=== PATIENT | female | born 1985 | race Caucasian/White ===

== ENCOUNTER → 2017-05-18 | Outpatient (CLI) | payer BC ==
[2017-05-18 19:45] LABS: HEMATOCRIT 43.5 % (36.0-47.0); HEMOGLOBIN 13.8 g/dl (12.0-16.0); MEAN CORPUSCULAR HGB CONC 31.7 g/dl (32.0-36.5); MEAN CORPUSCULAR VOLUME 82.1 fl (80.0-96.0); PLATELET COUNT, AUTOMATED 219 10^3/uL (150-450); RED CELL DISTRIBUTION WIDTH 13.4 % (11.5-14.5); WHITE BLOOD COUNT 7.3 10^3/uL (4.0-10.0)
[2017-05-18 20:11] LABS: TOTAL 25(OH) VITAMIN D 18.2 NG/ML (30.0-100.0)
[2017-05-18 20:12] LABS: THYROID PEROXIDASE ANTIBODY 189.5 U/ML (<60.0)
[2017-05-18 20:17] LABS: ALBUMIN 4.2 GM/DL (3.2-5.2); ALBUMIN/GLOBULIN RATIO 1.24 (1.00-1.93); ALKALINE PHOSPHATASE 60 U/L (45-117); ALT/SGPT 29 U/L (12-78); ANION GAP 8 MEQ/L (8-16); AST/SGOT 22 U/L (7-37); BILIRUBIN,TOTAL 0.3 MG/DL (0.2-1.0); BLOOD UREA NITROGEN 11 MG/DL (7-18); CALCIUM LEVEL 8.7 MG/DL (8.5-10.1); CARBON DIOXIDE LEVEL 26 MEQ/L (21-32); CHLORIDE LEVEL 107 MEQ/L (98-107); CREATININE FOR GFR 0.59 MG/DL (0.55-1.30); FREE T4 0.96 NG/DL (0.76-1.46); GLOMERULAR FILTRATION RATE > 60.0 (>60); GLUCOSE, FASTING 81 MG/DL (70-100); POTASSIUM SERUM 4.3 MEQ/L (3.5-5.1); SODIUM LEVEL 141 MEQ/L (136-145); TOTAL PROTEIN 7.6 GM/DL (6.4-8.2)
== END ==
LOC: M WUC 17:38
DX: R94.6 Abnormal results of thyroid function studies (principal); K59.00 Constipation, unspecified; Z13.0 Encounter for screening for diseases of the blood and blood-forming organs and certain disorders involving the immune mechanism
CPT/HCPCS: 84443

== ENCOUNTER 2017-06-12 13:15 | Emergency (ER) | payer MEDICAID, BC, OTHER | END 2017-06-12 14:53 | disposition home or self-care (01) | LOC: M ED 13:15 | DX: R04.0 Epistaxis (principal); Z88.2 Allergy status to sulfonamides | CPT/HCPCS: 99282 ==

== ENCOUNTER → 2017-10-06 | Outpatient (CLI) | payer OTHER ==
[2017-10-06 15:39] LABS: FREE T4 0.98 NG/DL (0.76-1.46)
[2017-10-06 16:32] LABS: TOTAL 25(OH) VITAMIN D 28.7 NG/ML (30.0-100.0)
[2017-10-07 09:22] LABS: THYROID PEROXIDASE ANTIBODY 200.2 U/ML (<60.0)
== END ==
LOC: M WUC 13:35
DX: R94.6 Abnormal results of thyroid function studies (principal); E55.9 Vitamin D deficiency, unspecified
CPT/HCPCS: 84443

== ENCOUNTER → 2018-11-05 | Outpatient (REF) | payer OTHER ==
[~2018-11-05] MED LIST: IBUP80TA PO; MAPA500T2 PO; STUACAP PO
== END ==
LOC: M SFHCPLAZ 15:39
PROVIDERS: ATTEND Family Medicine
DX: D22.70 Melanocytic nevi of unspecified lower limb, including hip (principal)

== ENCOUNTER 2019-04-21 13:09 | Inpatient (IN) | payer OTHER, SELFPAY ==
[~2019-04-21] VITALS: Ht 170.2 cm; Wt 72.1 kg
[2019-04-21] MEDS ORDERED: MIRE1IUD IU (13:16)
[2019-04-21] MEDS ORDERED: KETOROLAC 30 MG/ML VIAL (J1885) IV ONE (13:30)
[2019-04-21] MEDS ORDERED: ONDANSETRON 4MG/2ML VIAL (J2405) IV ONE (13:30)
[2019-04-21] MEDS ORDERED: NS 1,000 ML IV ONE ×2 (13:30→18:00)
[2019-04-21 13:45] LABS: BASO # 0.1 10^3/uL (0.0-0.2); BASO % 0.3 % (0.0-1.0); EOS # 0.1 10^3/uL (0.0-0.5); EOS % 0.3 % (0.0-3.0); HEMATOCRIT 44.4 % (36.0-47.0); HEMOGLOBIN 14.3 g/dl (12.0-15.5); LYMPH # 2.3 10^3/uL (1.5-5.0); LYMPH % 15.6 % (24.0-44.0); MEAN CORPUSCULAR HGB CONC 32.2 g/dl (32.0-36.5); MEAN CORPUSCULAR VOLUME 83.9 fl (80.0-96.0); MONO # 0.6 10^3/uL (0.0-0.8); MONO % 4.4 % (0.0-5.0); NEUTROPHILS # 11.5 10^3/uL (1.5-8.5); PLATELET COUNT, AUTOMATED 229 10^3/uL (150-450); RED BLOOD COUNT 5.29 10^6/uL (4.00-5.40); WHITE BLOOD COUNT 14.6 10^3/uL (4.0-10.0)
[2019-04-21 14:14] LABS: ALBUMIN 4.5 GM/DL (3.2-5.2); ALT/SGPT 18 U/L (12-78); BILIRUBIN,DIRECT < 0.1 MG/DL (0.0-0.2); BILIRUBIN,TOTAL 0.3 MG/DL (0.2-1.0); LIPASE 195 U/L (73-393); TOTAL PROTEIN 7.8 GM/DL (6.4-8.2)
[2019-04-21] MEDS ORDERED: PROMETHAZINE INJ 25 MG/ML VIAL (J2550) IM ONE (15:00)
[2019-04-21] MEDS ORDERED: cefTRIAXone SOD 1 GM in D5W MINI-BAG PLUS 50 ML IV ONE (15:00)
--- NOTE | 2019-04-21 15:08 | REP ---
CT of the abdomen and pelvis without IV or bowel contrast for left flank pain: There are no comparisons. The visualized lung denise are unremarkable. The unenhanced hepatic parenchyma, gallbladder, pancreas, spleen and adrenals are unremarkable. There are no renal, ureteral or bladder calculi. There is no hydronephrosis. There is no perinephric stranding. The abdominal aorta is unremarkable. There are periaortic nodes, normal size and borderline enlarged. There is no bowel distension or obstruction. There is no ascites. Pelvis: The appendix is unremarkable. There is an IUD in the uterus. The adnexa are unremarkable. There is no adenopathy or ascites. The bladder is unremarkable. The pelvic bowel loops are unremarkable. Impression: There are no renal, ureteral or bladder calculi. There is no hydronephrosis or perinephric stranding. There is an IUD in the uterus. There is no bowel distension or obstruction. There is no ascites. There are normal size and borderline enlarged periaortic nodes. The lumbar spine, sacrum, sacroiliac joints and hip joints are unremarkable. Electronically Signed by Sabino Lovett MD 04/21/2019 02:17 P
[2019-04-21] MEDS: GASTROGRAFIN SOLUTION 30ML PO SCH ×2 (16:01→16:30)
[2019-04-21] MEDS ORDERED: MORPHINE 4 MG/ML 1ML VIAL/SYRINGE (J2270) IV ONE (16:15)
[2019-04-21] MEDS ORDERED: ISOVUE-370 76% 100ML VIAL (Q9967) As Ordered ONE (16:37)
--- NOTE | 2019-04-21 17:11 | REP ---
CT of the abdomen and pelvis with IV and oral contrast: The study is correlated with the CT of the abdomen pelvis without IV contrast earlier today. Note from the technologist states the patient was unable to tolerate the oral contrast. There is a huge left retroperitoneal mass. On the sagittal images portion of this mass can be seen arising from the lower pole of the left kidney. This portion of the mass contains an oppose as well as soft tissue components, compatible with renal angiomyolipoma. The remainder of the huge mass is a fairly uniform density and may represent extension of the renal mass or could represent a huge retroperitoneal hematoma that is likely developed for a long period of time, or combination. There is no bowel distension or obstruction. The small bowel is displaced anterolaterally to the right by the usual left retroperitoneal mass. There is no colonic obstruction or distension. There is no ascites. There is no periaortic, mesenteric or retroperitoneal adenopathy. Pelvis: There is a trace of ascites in the dependent pelvis. The uterus and adnexa are unremarkable except for uterine IUD in the midline. The pelvic bowel loops are unremarkable. Impression: There is a huge left retroperitoneal mass as described. A portion of this mass arises from the lower pole of the left kidney anteriorly and contains adipose, compatible with renal angiomyolipoma. The remainder of this huge mass may be an extension of the renal tumor or could be a large retroperitoneal hematoma that may have developed over a long period of time or could be a combination. Electronically Signed by Sabino Lovett MD 04/21/2019 05:01 P
[2019-04-21] MEDS ORDERED: ONDA4TAB6 PO (17:38)
[2019-04-21] MEDS ORDERED: PERC5TAB12 PO (17:38)
[2019-04-21] MEDS ORDERED: MACR100C43 PO (17:38)
[2019-04-21 18:42] LABS: BASO % 0.2 % (0.0-1.0); HEMATOCRIT 36.4 % (36.0-47.0); HEMOGLOBIN 11.6 g/dl (12.0-15.5); LYMPH # 1.1 10^3/uL (1.5-5.0); LYMPH % 6.3 % (24.0-44.0); MEAN CORPUSCULAR HEMOGLOBIN 26.4 pg (27.0-33.0); MEAN CORPUSCULAR HGB CONC 31.9 g/dl (32.0-36.5); MEAN CORPUSCULAR VOLUME 82.7 fl (80.0-96.0); MONO # 0.5 10^3/uL (0.0-0.8); NEUTROPHILS # 14.9 10^3/uL (1.5-8.5); NEUTROPHILS % 90.1 % (36.0-66.0); PLATELET COUNT, AUTOMATED 234 10^3/uL (150-450); WHITE BLOOD COUNT 16.6 10^3/uL (4.0-10.0)
[2019-04-21] MEDS ORDERED: MOM 30ML SUSPENSION UDC PO PRN (19:30)
[2019-04-21] MEDS ORDERED: MAALOX 30 ML SUSP *UDC PO PRN (19:30)
--- NOTE | 2019-04-21 19:31 | HPEPDOC ---
[facility] Medical History & Physical Date of Admission Apr 21, 2019 Date of Service: Apr 21, 2019 Primary Care Physician: QUINTON RODRIGUES DO Attending Physician: SARITHA LUA MD History and Physical TIME OF SERVICE: 7:54 PM CHIEF COMPLAINT: Pain HISTORY OF PRESENT ILLNESS: This is a 33 old female who presents with complaints of sudden onset, severe left-sided flank pain that later on moved to her abdomen that began around 10 this morning. She's never had this kind of pain before. Since that his symptoms include nausea, vomiting, and chills. She denies having fevers. Currently, she doesn't have any pain unless she moves around. Per discussion with the ER provider a CT of the abdomen showed an angiolipoma with hematoma at the left kidney & her hemoglobin dropped from 14.3-11.6. Dr. Narvaez urologist has been consulted. REVIEW OF SYSTEMS: 12 point review of systems negative except as listed in HPI PAST MEDICAL/ SURGICAL HISTORY: Hypothyroidism controlled with "autoimmune diet." She denies a history of celiac disease or diabetes SOCIAL HISTORY: She doesn't smoke FAMILY HISTORY: Hyperparathyroidism ALLERGIES: Please see below. HOME MEDICATIONS: Please see below. PHYSICAL EXAMINATION: Vital Signs Date Time Temp Pulse Resp B/P (MAP) Pulse Ox O2 Delivery O2 Flow Rate FiO2 04/21/19 13:10 97.2 80 22 108/76 (87) 100 Room Air GEN: well-nourished / well developed/ NAD INTEGUMENT: not flushed/ not jaundice / no rashes / she has a tattoo on the dorsal surface of one of her feet HEENT: NCAT / lips acyanotic /mucus membranes moist and pink CVS: RRR/NMRG/ no JVP / radial and dorsalis pedis pulses intact / no lower extremity edema LUNGS: able to speak full sentences without stopping to take a breath / no coughing / lungs are clear to auscultation bilaterally on room air ABDOMEN: Contour (flat) / there are no masses or lesions / bowel sounds are hypoactive/ the abdomen is soft & tender with percusion and palpation of the left side MSK/EXTREMITIES: range of motion intact in all 4 extremities NEURO: CN 2-12 are grossly intact / speech is not dysarthric PSYCH: alert and oriented to person place and time/ able to understand and follow all commands Laboratory Tests 04/21/19 13:31 04/21/19 18:18 IMAGING: CT abdomen and pelvis without contrast "...large left retroperitoneal mass rela donnie to the left kidney containing solid and adipose components, possibky a renal angiomyolipoma. There are no comparison studies. In addition, it was discovered that the pelvis is included with the scan and a different file series. On review of the pelvis, there is a IUD in the midline of the uterus. The pelvic bowel loops are unremarkable. There is no adenopathy or ascites. The pelvic bowel loop s are unremarkable. IMPRESSION: Large left retroperitoneal mass as described. Recommend followup CT study with IV contrast for better elucidation of this mass. IUD in the uterus." CT abdomen and pelvis with contrast "...There is a huge left retroperitoneal mass. On the sagittal images portion of this mass can be seen arising from the lower pole of the left kidney. This portion of the mass contains an oppose as well as soft tissue components, compatible with renal angiomyolipoma. The remainder of the huge mass is a fairly uniform density and may represent extension of the renal mass or could represent a huge retroperitoneal hematoma that is likely developed for a long period of time, or combination. There is no bowel distension or obstruction. The small bowel is displaced anterolaterally to the right by the usual left retroperitoneal mass. There is no colonic obstruction or distension. There is no ascites. There is no periaortic, mesenteric or retroperitoneal adenopathy. Pelvis: There is a trace of ascites in the dependent pelvis. The uterus and adnexa are unremarkable except for uterine IUD in the midline. The pelvic bowel loops are unremarkable. Impression: There is a huge left retroperitoneal mass as described. A portion of this mass arises from the lower pole of the left kidney anteriorly and contains adipose, compatible with renal angiomyolipoma. The remainder of this huge mass may be an extension of the renal tumor or could be a large retroperitoneal hematoma that may have developed over a long period of time or could be a combination." ASSESSMENT: Mr. Moody is a 33-year-old female with a past medical history of hypothyroidism, was admitted for management of acute anemia and left renal angiolipoma with hematoma. PLAN: 1. Acute anemia. Likely due to hematoma. Plan: Admit to PCU/monitor vitals/follow-up serial hemoglobin and iron panel/type and screen 2. Renal angiolipoma. Plan: Nothing by mouth with IV fluids/Follow-up with Dr. Narvaez / Hermelindo for nausea and vomiting and morphine for pain DVT PROPHYLAXIS: SCDs DISPOSITION: Home after more than 2 midnight's stay Home Medications Scheduled Levonorgestrel (Mirena) 1 Each Iud, 20 MCG IU ASDIRECTED Nitrofurantoin Monohyd/M-Cryst (Macrobid 100 mg Capsule) 100 Mg Capsule, 100 MG PO BID Scheduled PRN Ondansetron (Ondansetron Odt) 4 Mg Tab.rapdis, 4 MG PO Q6-8HP PRN for nausea/vomiting Oxycodone HCl/Acetaminophen (Percocet 5-325 mg Tablet) 1 Each Tablet, 1 TAB PO Q6H PRN for PAIN Allergies Coded Allergies: Sulfa (Sulfonamide Antibiotics) (Verified Allergy, Unknown, 04/21/19) A-FIB/CHADSVASC A-FIB History Current/History of A-Fib/PAF?: No Current PO Anticoag Therapy: No SARITHA LUA MD Apr 21, 2019 19:31
[2019-04-21 19:54] LABS: FERRITIN 46 NG/ML (8-252); IRON (FE) 103 UG/DL (50-170); PERCENT SATURATION 31.4 % (13.2-45.0); TOTAL IRON BINDING CAPACITY 328 UG/DL (250-450)
[2019-04-21] MEDS ORDERED: ONDANSETRON 4MG/2ML VIAL (J2405) IV PRN (20:15)
[2019-04-21] MEDS: ONDANSETRON 4MG/2ML VIAL (J2405) IV PRN (20:16)
[2019-04-21] MEDS: LR 1,000 ML IV SCH (21:47)
[2019-04-21] MEDS: DOCUSATE SODIUM 100 MG CAP PO SCH (21:50)
[2019-04-21 22:08] LABS: HEMOGLOBIN 10.5 g/dl (12.0-15.5)
--- NOTE | 2019-04-21 22:08 | SMCUROLCON ---
Urology Consultation General Date of Consultation 04/21/19 Reason For Consultation This patient is seen for Acute Anemia; Angiomyolipoma Of L Kidney. History of Present Illness The patient is a previously healthy female who today noted the sudden onset of sharp pain in the left side of her abdomen with nausea and vomiting. later the pain radiated to the LLQ and the left flank. She has sustained no trauma and denies any recent strenuous activity. She has noted no gross hematuria. For the last 6 months or so she has noted abdominal distension after consuming carbonated beverages with discomfort in the upper abdomen. This has resolved after avoiding these beverages. About ten years ago she was evaluated by a shot hole shooter for constipation. This problem has resolved. She has no history of dysuria, frequency, gross hematuria, UTIs, kidney stones or prior urologic surgery. A CT scan was performed which demonstrates an at least ten cm complex mass emanating from the anterior aspect of the lower pole of the left kidney. The dimensions were not described in the radiologist report. There is definite fat density in the mass making this suspicious for a renal angiomyolipoma. There is extensive hemorrhage surrounding the mass and kidney in the left retroperitoneum. Her urinalysis showed microscopic hematuria and pyuria, a culture has been requested. CBC at 1:31 pm today showed Hgb/ Hct of 14.3/44.4. A CBC at 6:18 pm showed Hgb/Hct of 11.6/36.4. She was noted to have orthostatic hypotension. A decision to admit was made. I discussed with the patient the probable diagnosis of left renal angiomyolipoma with spontaneous hemorrhage. I explained the need to stabilize her and carefully observe her. I explained that she may require transfusion. I explained the options of possible segmental renal artery embolization OR surgery with hopeful partial nephrectomy IF the bleeding continues. Pharmacologic treatment with mTor inhibitors likely has no role in this situation with acute bleeding. The patient has no medical history to suggest a diagnosis of tuberous sclerosis which can be associated with renal angiomyolipomas. Her past medical history is remarkable for hypothyroidism. She has no problems now with constipation but has had difficulties in the past. She has recently become intolerant of carbonated beverages. Her only prior hospitalization was for childbirth. Past Medical History Medical History as described in HPI Medications Current Medications Current Medications Medications (Trade) Dose Ordered Sig/Jacey Route PRN Reason Start Time Stop Time Status Last Admin Dose Admin Acetaminophen (Tylenol Tab) 650 mg Q4H PRN PO PAIN OR FEVER 04/21/19 19:30 Al Hydrox/Mg Hydrox/Simethicone (Mylanta) 30 ml DAILY PRN PO DYSPEPSIA 04/21/19 19:30 Diatrizoate Meglum/ Diatrizoate Sod (Gastrografin) 10 ml Q30M PO 04/21/19 16:00 04/21/19 16:31 DC 04/21/19 16:01 Docusate Sodium (Colace) 100 mg BID PO 04/21/19 21:00 Home Med (Med Rec Complete!) ASDIRECTED XX 04/21/19 19:15 04/21/19 19:14 DC Lactated Ringer's 1,000 ml @ 80 mls/hr [id number] IV 04/21/19 19:30 04/21/19 21:47 Magnesium Hydroxide (Milk Of Magnesia) 30 ml DAILY PRN PO CONSTIPATION 04/21/19 19:30 Morphine Sulfate (Morphine Sulfate Inj) 2 mg Q2H PRN IV BREAKTHROUGH PAIN 04/21/19 20:15 Ondansetron HCl (ZOFRAN INJection) 2 mg Q4HP PRN IV NAUSEA OR VOMITING 04/21/19 20:15 04/21/19 20:13 DC Ondansetron HCl (ZOFRAN INJection) 4 mg Q4HP PRN IV NAUSEA OR VOMITING 04/21/19 20:15 04/21/19 20:16 Allergies Allergies: Coded Allergies: Sulfa (Sulfonamide Antibiotics) (Verified Allergy, Unknown, 04/21/19) Physical Examination General Exam: Alert, Cooperative, No Acute Distress EYE EXAM: PERRLA, Conjunctiva & lids normal, EOMI ENT EXAM: Atraumatic Neck Exam: Supple; No: thyromegaly, Lymphadenopathy Chest Exam: Clear to auscultation Heart Exam: Rate Normal Abdomen Exam: Other (fullness present in upper abdomen, tender to palpation LUQ and left CVA, no rebound tenderness, no guarding.) Extremity Exam: No: Clubbing, Cyanosis, Edema Skin Exam: Nl turgor and temperature Neuro Exam: Normal Speech Psych Exam: Mental status NL Vital Signs/I&O Vital Signs Date Time Temp Pulse Resp B/P (MAP) Pulse Ox O2 Delivery O2 Flow Rate FiO2 04/21/19 21:15 87 103/66 (78) 97 04/21/19 17:51 97.0 20 Room Air Laboratory Data 24H Labs Laboratory Tests 2 04/21/19 13:31: Immature Granulocyte % (Auto) 0.4, Neutrophils (%) (Auto) 79.0H, Lymphocytes (%) (Auto) 15.6L, Monocytes (%) (Auto) 4.4, Eosinophils (%) (Auto) 0.3, Basophils (%) (Auto) 0.3, Neutrophils # (Auto) 11.5H, Lymphocytes # (Auto) 2.3, Monocytes # (Auto) 0.6, Eosinophils # (Auto) 0.1, Basophils # (Auto) 0.1, Nucleated Red Blood Cells % (auto) 0.0, POC Glucose (Misc Panel) 144H, POC Sodium (Misc Panel) 138, POC Potassium (Misc Panel) 3.3L, POC Chloride (Misc Panel) 102, POC Total CO2 (Misc Panel) 25.0, POC Blood Urea Nitrogen (Misc Panel 14, POC Ionized Calcium (Misc Panel) 4.6, POC Creatinine (Misc Panel) 0.6, POC Hematocrit (Misc Panel) 45.0, Iron Level 103, Total Iron Binding Capacity 328, Transferrin % Saturation 31.4, Ferritin 46, Total Bilirubin 0.3, Direct Bilirubin < 0.1, Aspartate Amino Transf (AST/SGOT) 17, Alanine Aminotransferase (ALT/SGPT) 18, Alkaline Phosphatase 62, Total Protein 7.8, Albumin 4.5, Albumin/Globulin Ratio 1.36, Lipase 195 04/21/19 13:32: POC Beta HCG, Quantitative < 5.0 04/21/19 13:34: Urine Color YELLOW, Urine Appearance CLEAR, Urine pH 6.0, Urine Specific [place] 1.015, Urine Protein NEGATIVE, Urine Glucose (UA) NEGATIVE, Urine Ketones TRACEH, Urine Blood NEGATIVE, Urine Nitrite NEGATIVE, Urine Bilirubin NEGATIVE, Urine Urobilinogen 0.2, Urine Leukocyte Esterase 1+H, Urine WBC (Auto) 10H, Urine RBC (Auto) 3, Urine Hyaline Casts (Auto) 0, Urine Bacteria (Auto) 1+H, Urine Squamous Epithelial Cells 4, Urine Sperm (Auto) 04/21/19 18:18: Immature Granulocyte % (Auto) 0.4, Neutrophils (%) (Auto) 90.1H, Lymphocytes (%) (Auto) 6.3L, Monocytes (%) (Auto) 3.0, Eosinophils (%) (Auto) 0.0, Basophils (%) (Auto) 0.2, Neutrophils # (Auto) 14.9H, Lymphocytes # (Auto) 1.1L, Monocytes # (Auto) 0.5, Eosinophils # (Auto) 0.0, Basophils # (Auto) 0.0, Nucleated Red Blood Cells % (auto) 0.0, Lactic Acid Level 2.7*H CBC/BMP Laboratory Tests 04/21/19 13:31 04/21/19 18:18 Microbiology Microbiology 04/21/19 Urine Culture, Received Pending Assessment 1. Left renal mass, probable renal angiomyolipoma with spontaneous hemorrhage 2. Abnormal urinalysis, culture requested Plan 1. Admit, close observation, serial measurement of Hgb/ Hct, iv fluids, transfusion if necessary 2. If bleeding continues consider angiographic embolization of segmental renal artery supplying the mass. Would like to avoid surgery if possible, in this setting of acute hemorrhage partial nephrectomy would be very difficult and my result in left nephrectomy 3. I explained the plan of management to the patient. She voiced that she agrees with this. VIN BRAND MD Apr 21, 2019 22:08
[2019-04-21 22:51] LABS: HEMATOCRIT 32.4 % (36.0-47.0); MEAN CORPUSCULAR HEMOGLOBIN 26.9 pg (27.0-33.0); MEAN CORPUSCULAR HGB CONC 31.8 g/dl (32.0-36.5); MEAN CORPUSCULAR VOLUME 84.6 fl (80.0-96.0); PLATELET COUNT, AUTOMATED 188 10^3/uL (150-450); RED BLOOD COUNT 3.83 10^6/uL (4.00-5.40); WHITE BLOOD COUNT 11.4 10^3/uL (4.0-10.0)
[2019-04-21] MEDS: MORPHINE 2 MG/ML 1ML VIAL (J2270) IV PRN (23:16)
[2019-04-22] VITALS (14 sets, daily range): BP systolic 81–131; BP diastolic 46–81
[2019-04-22] MEDS: LevoFLOXacin IV 500 MG in IV 1 EA IV SCH (04:59)
[2019-04-22 05:14] LABS: HEMATOCRIT 28.8 % (36.0-47.0); HEMOGLOBIN 9.3 g/dl (12.0-15.5); MEAN CORPUSCULAR HGB CONC 32.3 g/dl (32.0-36.5); MEAN CORPUSCULAR VOLUME 83.5 fl (80.0-96.0); PLATELET COUNT, AUTOMATED 177 10^3/uL (150-450); RED BLOOD COUNT 3.45 10^6/uL (4.00-5.40); WHITE BLOOD COUNT 12.1 10^3/uL (4.0-10.0)
[2019-04-22 05:41] LABS: BLOOD UREA NITROGEN 9 MG/DL (7-18); CALCIUM LEVEL 7.6 MG/DL (8.5-10.1); CARBON DIOXIDE LEVEL 24 MEQ/L (21-32); CHLORIDE LEVEL 112 MEQ/L (98-107); CREATININE FOR GFR 0.49 MG/DL (0.55-1.30); GLOMERULAR FILTRATION RATE > 60.0 (>60); GLUCOSE, FASTING 104 MG/DL (70-100); SODIUM LEVEL 141 MEQ/L (136-145)
--- NOTE | 2019-04-22 07:52 | IPNPDOC ---
Subjective Review oF Systems Chief Complaint The patient is a 33-year-old female admitted with a reason for visit of Acute Anemia; Angiomyolipoma Of L Kidney. Events since Last Encounter That patient states that she is more comfortable this am. No nausea and pain is less. Most recent vital signs reveal BP of 81/46, pulse is 100. AM labs: hgb/hct is 9.3/28.8, creatinine is 0.49, BUN is 9 Exam: alert female in bed in no distress Impression: Spontaneous bleeding into left retroperitoneum secondary to large left renal angiomyolipoma Plan: I discussed the situation with Dr. Martins of interventional radiology. She will proceed with angiographic embolization of left renal angiomyolipoma this am. Needs close monitoring of hemodynamic status, may require transfusion secondary to blood loss. I discussed the plan with the patient , she voiced that she agrees. Objective Physical Examination General Exam: Alert, Cooperative, No Acute Distress Vital Signs/I&O Vital Signs Date Time Temp Pulse Resp B/P (MAP) Pulse Ox O2 Delivery O2 Flow Rate FiO2 04/22/19 06:27 98.4 100 20 81/46 (58) 98 Room Air I&O- Last 24 Hours up to 6 AM 04/22/19 06:00 Intake Total 1290 ml Output Total 300 ml Balance 990 ml Laboratory Data Labs 24H Laboratory Tests 2 04/21/19 13:31: Immature Granulocyte % (Auto) 0.4, Neutrophils (%) (Auto) 79.0H, Lymphocytes (%) (Auto) 15.6L, Monocytes (%) (Auto) 4.4, Eosinophils (%) (Auto) 0.3, Basophils (%) (Auto) 0.3, Neutrophils # (Auto) 11.5H, Lymphocytes # (Auto) 2.3, Monocytes # (Auto) 0.6, Eosinophils # (Auto) 0.1, Basophils # (Auto) 0.1, Nucleated Red Blood Cells % (auto) 0.0, POC Glucose (Misc Panel) 144H, POC Sodium (Misc Panel) 138, POC Potassium (Misc Panel) 3.3L, POC Chloride (Misc Panel) 102, POC Total CO2 (Misc Panel) 25.0, POC Blood Urea Nitrogen (Misc Panel 14, POC Ionized Calcium (Misc Panel) 4.6, POC Creatinine (Misc Panel) 0.6, POC Hematocrit (Misc Panel) 45.0, Iron Level 103, Total Iron Binding Capacity 328, Transferrin % Saturation 31.4, Ferritin 46, Total Bilirubin 0.3, Direct Bilirubin < 0.1, Aspartate Amino Transf (AST/SGOT) 17, Alanine Aminotransferase (ALT/SGPT) 18, Alkaline Phosphatase 62, Total Protein 7.8, Albumin 4.5, Albumin/Globulin Ratio 1.36, Lipase 195 04/21/19 13:32: POC Beta HCG, Quantitative < 5.0 04/21/19 13:34: Urine Color YELLOW, Urine Appearance CLEAR, Urine pH 6.0, Urine Specific [place] 1.015, Urine Protein NEGATIVE, Urine Glucose (UA) NEGATIVE, Urine Ketones TRACEH, Urine Blood NEGATIVE, Urine Nitrite NEGATIVE, Urine Bilirubin NEGATIVE, Urine Urobilinogen 0.2, Urine Leukocyte Esterase 1+H, Urine WBC (Auto) 10H, Urine RBC (Auto) 3, Urine Hyaline Casts (Auto) 0, Urine Bacteria (Auto) 1+H, Urine Squamous Epithelial Cells 4, Urine Sperm (Auto) 04/21/19 18:18: Immature Granulocyte % (Auto) 0.4, Neutrophils (%) (Auto) 90.1H, Lymphocytes (%) (Auto) 6.3L, Monocytes (%) (Auto) 3.0, Eosinophils (%) (Auto) 0.0, Basophils (%) (Auto) 0.2, Neutrophils # (Auto) 14.9H, Lymphocytes # (Auto) 1.1L, Monocytes # (Auto) 0.5, Eosinophils # (Auto) 0.0, Basophils # (Auto) 0.0, Nucleated Red Blood Cells % (auto) 0.0, Lactic Acid Level 2.7*H 04/21/19 22:00: Nucleated Red Blood Cells % (auto) 0.0 04/21/19 23:08: Lactic Acid Followup at 4 Hours 2.0 04/22/19 04:53: Nucleated Red Blood Cells % (auto) 0.0, Anion Gap 5L, Glomerular Filtration Rate > 60.0, Calcium Level 7.6L CBC/BMP Laboratory Tests 04/21/19 13:31 04/21/19 18:18 04/21/19 22:00 04/22/19 04:53 Microbiology Microbiology 04/21/19 Urine Culture, Received Pending Assessment/Plan Date Seen The patient was seen on 04/22/19. Patient Summary Spontaneous Retroperitoneal hemorrhage secondary to large left renal angiomyolipoma Plan/VTE VTE Prophylaxis Ordered?: Yes Plan Selective embolization of left renal AML by interventional radiology VIN BRAND MD Apr 22, 2019 07:52
[2019-04-22] MEDS ORDERED: MIDAZOLAM INJ 2 MG/2 ML VIAL (J2250) As Ordered ONE (08:37)
[2019-04-22] MEDS ORDERED: fentaNYL 100 MCG/2 ML INJECTION (J3010) As Ordered ONE (08:37)
[2019-04-22] MEDS ORDERED: ISOVUE-300 61% 50ML VIAL (Q9967) As Ordered ONE ×4 (08:38→10:18)
[2019-04-22] MEDS ORDERED: diphenhydrAMINE INJ 50MG/ML VIAL (J1200) As Ordered ONE (08:38)
[2019-04-22] MEDS ORDERED: LIDOCAINE 1% MDV 20ML VIAL As Ordered ONE (08:38)
[2019-04-22] MEDS ORDERED: EMBOSPHERE MICROSPHERES 500-700UM(MICRONS) 2ML SYRINGE As Ordered ONE (08:45)
--- NOTE | 2019-04-22 08:50 | IRMSE ---
[facility] IR Moderate Sedation Eval. Date and Time Date: Apr 22, 2019 Time: 08:49 ASA Classification ASA Classification: II-Mild systemic disease Mallampati Score: II NPO: Yes Obstructive Sleep Apnea: No Interval Plan: moderate sedation GABRIELA PALOMO MD Apr 22, 2019 08:50
[2019-04-22] MEDS: DOCUSATE SODIUM 100 MG CAP PO SCH ×2 (09:00→21:37)
[2019-04-22] MEDS ORDERED: EMBOSPHERE MICROSPHERES As Ordered ONE (10:13)
--- NOTE | 2019-04-22 11:14 | POST-OPPD ---
Postoperative Procedure Note Date Of Procedure: Apr 22, 2019 Time Of Procedure: 11:13 PREOPERATIVE DIAGNOSIS: left AML POSTOPERATIVE DIAGNOSIS: same FINDINGS: left renal AML PROCEDURE: embolization SURGEON: felipe ANESTHESIA: mod sed ESTIMATED BLOOD LOSS: < 5 ml COMPLICATIONS: none POSTOPERATIVE CONDITION: stable GABRIELA PALOMO MD Apr 22, 2019 11:14
[2019-04-22] MEDS: LR 1,000 ML IV SCH (12:07)
[2019-04-22] MEDS ORDERED: ACETAMINOPHEN TAB 650MG DOSE (2X325MG) PO PRN (13:00)
--- NOTE | 2019-04-22 14:15 | REP ---
IR left renal artery angiography. IR left main renal artery catheterization. IR sub selective second order left renal artery catheterization. IR super selective third order branch renal artery catheterization. IR super selective fourth order branch renal artery catheterization. IR super selective fifth order branch renal artery catheterization. IR super selective fifth order branch renal artery angiography and embolization. IR ultrasound guided right femoral artery access. IR moderate sedation. Clinical Information: Retroperitoneal hemorrhage. Large left angiomyolipoma. Physician: Dr Oneil.Procedure: The patient was advised of the benefits, risks, and alternatives of the procedure and informed consent was obtained.A time out was performed with verification of the patient's name, MRN, site of procedure, and type of procedure to be performed. The patient was positioned in the supine position on the angiographic table. The site was prepped and draped in the usual sterile fashion.Moderate sedation was performed by the physician including the presence of an independent trained observer who assisted in monitoring the patient's level of consciousness and physiological status. Following the administration of Fentanyl and Versed, the physician spent 90 minutes of continuous [id number] time with the patient. A tank calibrator radiograph reveals no gross abnormality. The right femoral artery was accessed with a micropuncture kit. A wire was advanced into the aorta. The micropuncture sheath was exchanged over the wire for a a 6-Portuguese vascular sheath. The Cobra catheter was advanced over the wire under fluoroscopy guidance and used to catheterize the main left renal artery. Angiogram was performed and this demonstrates early bifurcation of the left main renal artery into a superior and inferior branch. The superior branch splits and courses inferior to supply the AML. The glide wire was advanced through the Cobra catheter and used to selectively catheterize the second order branch of the main renal artery. An arteriogram was performed and this demonstrates an inferior coursing branch off the second order branch of the main renal artery which courses towards the lower pole of the kidney and also supplies the AML. The angiomyolipoma demonstrates circumferential peripheral enhancement and internal neovascularity with patchy areas of amorphous contrast pooling. No large AVM. A micro catheter micro wire were advanced through the diagnostic catheter and used to sub selectively catheterize the distal third order branch of the main renal artery. An arteriogram was performed and this demonstrates vascular supply to the AML. No significant enhancement of normal kidney from this location. The micro catheter and micro wire were used to sub selectively catheterize the fourth order branch off this vessel. An arteriogram was performed and this demonstrates this super selective branch supplies normal kidney. The micro catheter was retracted back to the earlier vessel. The micro catheter in conjunction with a micro wire was used to catheterize a different fifth order branch of this vessel. An arteriogram was performed and this demonstrates contrast pooling within the AML. A 2 mm intimal coil was used to embolize this distal fifth order branch off the second order branch of the main renal artery. The micro catheter was retracted and an angiogram was performed. This demonstrates supply to the AML from this location. No supply to significant normal renal tissue from this location. 3- 500 and 5-700 micron Embospheres were used under fluoroscopy guidance from this location to embolize the AML. Intermittent contrast injection angiography was performed to determine completion of embolization. After appropriate stasis, the micro catheter was retracted and a follow-up angiogram was performed. This demonstrates complete embolization of the AML. The micro catheter was retracted back to the proximal second order branch of the renal artery and an arteriogram was performed. This demonstrates preserved flow to the normal kidney without vascular enhancement of the AML. The micro catheter was removed. A follow-up arteriogram was performed through the diagnostic catheter in the main left renal artery. This demonstrates good flow in both second order branches of the main renal artery, lobar and intraparenchymal branches and normal renal parenchymal enhancement. No further vascular enhancement at the AML. No extravasation. The catheter was removed. A 6-Portuguese Mynx device was used to close the groin arteriotomy and the sheath was removed. Hemostasis achieved. A sterile dressing was applied to the site. Patient tolerated the procedure well and was transferred to PRU in stable condition. Complications: None. Estimated blood loss: Less than 5 ml. Impression: 1. Left renal selective and super selective catheterization and angiography demonstrates early branching of the left main renal artery. The superior of the two arteries courses inferior to the inferior pole of the left kidney and supplies an angiomyolipoma. 2. Successful sub selective renal artery micro catheterization and AML embolization. 3. Patient to follow up in IR clinic in 1 month. Thank you for this referral. Electronically Signed by Tiffanie Oneil MD 04/22/2019 02:13 P
[2019-04-22] MEDS: ACETAMINOPHEN TAB 650MG DOSE (2X325MG) PO PRN ×2 (14:35→23:32)
[2019-04-22] MEDS: ONDANSETRON 4MG/2ML VIAL (J2405) IV PRN ×2 (14:35→21:37)
[2019-04-22] MEDS ORDERED: SLF 3 ML SYR IV PRN (16:45)
[2019-04-22] MEDS: SLF 3 ML SYR IV SCH (21:38)
[2019-04-23] VITALS: BP 124/76
[2019-04-23] MEDS ORDERED: METOCLOPRAMIDE INJ 10MG/2ML VIAL (J2765) IV ONE
[2019-04-23] MEDS: MORPHINE 2 MG/ML 1ML VIAL (J2270) IV PRN ×3 (00:26→07:37)
[2019-04-23 03:40] LABS: BASO % 0.3 % (0.0-1.0); EOS % 0.3 % (0.0-3.0); HEMATOCRIT 31.8 % (36.0-47.0); LYMPH # 1.8 10^3/uL (1.5-5.0); LYMPH % 19.3 % (24.0-44.0); MEAN CORPUSCULAR HEMOGLOBIN 27.6 pg (27.0-33.0); MEAN CORPUSCULAR VOLUME 83.7 fl (80.0-96.0); MONO # 0.8 10^3/uL (0.0-0.8); MONO % 8.5 % (0.0-5.0); NEUTROPHILS # 6.7 10^3/uL (1.5-8.5); NEUTROPHILS % 71.3 % (36.0-66.0); PLATELET COUNT, AUTOMATED 122 10^3/uL (150-450); WHITE BLOOD COUNT 9.5 10^3/uL (4.0-10.0)
[2019-04-23 03:41] LABS: HEMOGLOBIN 10.5 g/dl (12.0-15.5)
[2019-04-23] MEDS: LevoFLOXacin IV 500 MG in IV 1 EA IV SCH (03:52)
[2019-04-23] MEDS: SLF 3 ML SYR IV SCH ×2 (03:53→14:40)
[2019-04-23 04:00] VITALS: BP 120/79
[2019-04-23 04:17] LABS: BLOOD UREA NITROGEN 4 MG/DL (7-18); CALCIUM LEVEL 7.7 MG/DL (8.5-10.1); CARBON DIOXIDE LEVEL 26 MEQ/L (21-32); CHLORIDE LEVEL 110 MEQ/L (98-107); CREATININE FOR GFR 0.58 MG/DL (0.55-1.30); GLOMERULAR FILTRATION RATE > 60.0 (>60); GLUCOSE, FASTING 101 MG/DL (70-100); POTASSIUM SERUM 3.8 MEQ/L (3.5-5.1); SODIUM LEVEL 141 MEQ/L (136-145)
--- NOTE | 2019-04-23 07:21 | IPNPDOC ---
Text Note Date of Service The patient was seen on 04/22/19. NOTE SUBJECTIVE: Patient just came back from IR. Complaining of soreness in the left flank and also some nausea. HH dropped to 8.4 will transfuse 2 units of PRBC. Denies any chest pain or sob . denies any diarrhea or vomiting. PHYSICAL EXAM: VITALS: Noted GEN: well-nourished / well developed/ NAD INTEGUMENT: not flushed/ not jaundice / no rashes / she has a tattoo on the dorsal surface of one of her feet HEENT: NCAT / lips acyanotic /mucus membranes moist and pink CVS: RRR/NMRG/ no JVP / radial and dorsalis pedis pulses intact / no lower extremity edema LUNGS: able to speak full sentences without stopping to take a breath / no coughing / lungs are clear to auscultation bilaterally on room air ABDOMEN: Contour (flat) / there are no masses or lesions / bowel sounds are hypoactive/ the abdomen is soft & tender with percusion and palpation of the left side MSK/EXTREMITIES: range of motion intact in all 4 extremities NEURO: CN 2-12 are grossly intact / speech is not dysarthric PSYCH: alert and oriented to person place and time/ able to understand and follow all commands Labs and Radiology: Reviewed. CT abdomen and pelvis with contrast "...There is a huge left retroperitoneal mass. On the sagittal images portion of this mass can be seen arising from the lower pole of the left kidney. This portion of the mass contains an oppose as well as soft tissue components, compatible with renal angiomyolipoma. The remainder of the huge mass is a fairly uniform density and may represent extension of the renal mass or could represent a huge retroperitoneal hematoma that is likely developed for a long period of time, or combination. There is no bowel distension or obstruction. The small bowel is displaced anterolaterally to the right by the usual left retroperitoneal mass. There is no colonic obstruction or distension. There is no ascites. There is no periaortic, mesenteric or retroperitoneal adenopathy. Pelvis: There is a trace of ascites in the dependent pelvis. The uterus and adnexa are unremarkable except for uterine IUD in the midline. The pelvic bowel loops are unremarkable. Impression: There is a huge left retroperitoneal mass as described. A portion of this mass arises from the lower pole of the left kidney anteriorly and contains adipose, compatible with renal angiomyolipoma. The remainder of this huge mass may be an extension of the renal tumor or could be a large retroperitoneal hematoma that may have developed over a long period of time or could be a combination." ASSESSMENT AND PLAN: This is a 33-year-old female with a past medical history of hypothyroidism, was admitted for management of acute anemia and left renal angiolipoma with hematoma. Acute Blood loss anemia. due to large retroperitoneal hematoma from bleeding from the left renal angiomyolipoma. Had IR embolisation done on 04/22/19 2 units PRBC Left Renal angiomyolipoma with Spontaneous Retroperitoneal hemorrhage s/p embolisation will monitor HH follow up Urology pain meds and zofran. VS,Fishbone, I+O VS, Fishbone, I+O Laboratory Tests 04/22/19 12:59 04/23/19 03:24 Vital Signs Date Time Temp Pulse Resp B/P (MAP) Pulse Ox O2 Delivery O2 Flow Rate FiO2 04/23/19 04:00 98.4 76 20 120/79 (93) 96 Room Air 04/22/19 10:45 2 I&O- Last 24 Hours up to 6 AM 04/23/19 06:00 Intake Total 2738 ml Output Total 2250 ml Balance 488 ml MOHSEN MUELLER MD Apr 23, 2019 07:21
[2019-04-23 08:00] VITALS: BP 120/74
[2019-04-23] MEDS: DOCUSATE SODIUM 100 MG CAP PO SCH (08:52)
[2019-04-23] MEDS ORDERED: PERCOCET 5MG/325MG TAB PO PRN (10:00)
[2019-04-23] MEDS: PERCOCET 5MG/325MG TAB PO PRN ×2 (10:47→16:31)
[2019-04-23 12:00] VITALS: BP 132/86
[2019-04-23 12:09] LABS: BASO % 0.2 % (0.0-1.0); EOS % 0.2 % (0.0-3.0); HEMATOCRIT 32.7 % (36.0-47.0); HEMOGLOBIN 10.9 g/dl (12.0-15.5); LYMPH # 1.3 10^3/uL (1.5-5.0); LYMPH % 11.7 % (24.0-44.0); MEAN CORPUSCULAR HEMOGLOBIN 27.4 pg (27.0-33.0); MEAN CORPUSCULAR HGB CONC 33.3 g/dl (32.0-36.5); MEAN CORPUSCULAR VOLUME 82.2 fl (80.0-96.0); MONO % 8.9 % (0.0-5.0); NEUTROPHILS # 8.7 10^3/uL (1.5-8.5); NEUTROPHILS % 78.6 % (36.0-66.0); PLATELET COUNT, AUTOMATED 119 10^3/uL (150-450); RED BLOOD COUNT 3.98 10^6/uL (4.00-5.40); WHITE BLOOD COUNT 11.1 10^3/uL (4.0-10.0)
[2019-04-23] MEDS ORDERED: BISACODYL 10 MG SUPP PR ONE (15:00)
--- NOTE | 2019-04-26 19:51 | DS.PDOC ---
Discharge Summary General Date of Admission Apr 21, 2019 at 19:27 Date of Discharge 04/23/19 Discharge Summary PROCEDURES PERFORMED DURING STAY: Angiographic embolization of left renal angiomyolipoma DISCHARGE DIAGNOSES: Spontaneous hemorrhage in left renal angiomyolipoma Retroperitoneal hematoma Possible underlying renal mass to be evaluated as outpatient Acute blood loss anemia Hypothyroid. COMPLICATIONS/CHIEF COMPLAINT: Acute Anemia; Angiomyolipoma Of L Kidney. HISTORY OF PRESENT ILLNESS: See history and physical HOSPITAL COURSE: This is a 33-year-old female with a past medical history of hypothyroidism, was admitted for management of acute spontaneous bleeding in left renal angiomyolipoma with large retroperitoneal hematoma. Acute Blood loss anemia. due to large retroperitoneal hematoma from bleeding from the left renal angiomyolipoma. Had IR embolisation done on 04/22/19 2 units PRBC Left Renal angiomyolipoma with Spontaneous Retroperitoneal hemorrhage will need to be evaluated for the presence of underlying renal mass under the bleeding. s/p embolisation will monitor HH follow up Urology pain meds and zofran. Repeat CT scan with contrast in 1 week. DISCHARGE MEDICATIONS: Please see below. ALLERGIES: Please see below. PHYSICAL EXAMINATION ON DISCHARGE: VITAL SIGNS: Please see below. GEN: well-nourished / well developed/ NAD INTEGUMENT: not flushed/ not jaundice / no rashes / she has a tattoo on the d orsal surface of one of her feet HEENT: NCAT / lips acyanotic /mucus membranes moist and pink CVS: RRR/NMRG/ no JVP / radial and dorsalis pedis pulses intact / no lower extremity edema LUNGS: able to speak full sentences without stopping to take a breath / no coughing / lungs are clear to auscultation bilaterally on room air ABDOMEN: Contour (flat) / there are no masses or lesions / bowel sounds are hypoactive/ the abdomen is soft & tender with percusion and palpation of the left side MSK/EXTREMITIES: range of motion intact in all 4 extremities NEURO: CN 2-12 are grossly intact / speech is not dysarthric PSYCH: alert and oriented to person place and time/ able to understand and follow all commands LABORATORY DATA: Please see below. RADIOLOGY: CT abdomen and pelvis with contrast "...There is a huge left retroperitoneal mass. On the sagittal images portion of this mass can be seen arising from the lower pole of the left kidney. This portion of the mass contains an oppose as well as soft tissue components, compatible with renal angiomyolipoma. The remainder of the huge mass is a fairly uniform density and may represent ext ension of the renal mass or could represent a huge retroperitoneal hematoma that is likely developed for a long period of time, or combination. There is no bowel distension or obstruction. The small bowel is displaced anterolaterally to the right by the usual left retroperitoneal mass. There is no colonic obstruction or distension. There is no ascites. There is no periaortic, mesenteric or retroperitoneal adenopathy. Pelvis: There is a trace of ascites in the dependent pelvis. The uterus and adnexa are unremarkable except for uterine IUD in the midline. The pelvic bowel loops are unremarkable. Impression: There is a huge left retroperitoneal mass as described. A portion of this mass arises from the lower pole of the left kidney anteriorly and contains adipose, compatible with renal angiomyolipoma. The remainder of this huge mass may be an extension of the renal tumor or could be a large retroperitoneal hematoma that may have developed over a long period of time or could be a combination." ACTIVITY: [As tolerated]. DIET: Regular DISPOSITION: 01 Home, Self-Care. DISCHARGE INSTRUCTIONS: Follow up with Urology in 1 week Follow up wtih PMD in 3 to 5 days. ITEMS TO FOLLOWUP ON ON OUTPATIENT: Needs CT abdomena nd pelvis with contrast in 1 week DISCHARGE CONDITION: [Stable]. TIME SPENT ON DISCHARGE: 35 minutes. Vital Signs/I&Os Vital Signs Date Time Temp Pulse Resp B/P (MAP) Pulse Ox O2 Delivery O2 Flow Rate FiO2 04/23/19 16:31 18 98 Room Air 04/23/19 12:00 99.3 115 132/86 (101) 04/22/19 10:45 2 Microbiology Microbiology 04/21/19 Urine Culture - Final, Complete Discharge Medications Scheduled Levonorgestrel (Mirena) 1 Each Iud, 20 MCG IU ASDIRECTED, (Reported) Nitrofurantoin Monohyd/M-Cryst (Macrobid 100 mg Capsule) 100 Mg Capsule, 100 MG PO BID Scheduled PRN Ondansetron (Ondansetron Odt) 4 Mg Tab.rapdis, 4 MG PO Q6-8HP PRN for nausea/vomiting Oxycodone HCl/Acetaminophen (Percocet 5-325 mg Tablet) 1 Each Tablet, 1 TAB PO Q6H PRN for PAIN Allergies Coded Allergies: Sulfa (Sulfonamide Antibiotics) (Verified Allergy, Unknown, 04/21/19) MOHSEN MUELLER MD Apr 26, 2019 19:51
== END 2019-04-23 16:53 | disposition home or self-care (01) | DRG 173 ==
LOC: M ED 13:09 → M ED INP 19:27 → ENRESERV 04-22 03:13 → M PCU 04-22 05:55
PROVIDERS: ADMIT Internal Medicine; ATTEND Internal Medicine Nephrology
PROC: 30233N1 Transfusion of Nonautologous Red Blood Cells into Peripheral Vein, Percutaneous Approach (ICD-10-PCS; 2019-04-22)
PROC: 04LA3ZZ Occlusion of Left Renal Artery, Percutaneous Approach (ICD-10-PCS; principal; 2019-04-22 09:00)
DX: R58 Hemorrhage, not elsewhere classified (principal); K66.1 Hemoperitoneum; D62 Acute posthemorrhagic anemia; D17.71 Benign lipomatous neoplasm of kidney; E03.9 Hypothyroidism, unspecified; N28.89 Other specified disorders of kidney and ureter; Z88.2 Allergy status to sulfonamides; Z79.899 Other long term (current) drug therapy

== ENCOUNTER → 2019-05-04 | Outpatient (CLI) | payer SELFPAY ==
[~2019-05-04] MED LIST changes: +GASTROGRAFIN SOLUTION 30ML (Q9963) As Ordered ONE; +ISOVUE-370 76% 100ML VIAL (Q9967) As Ordered ONE; +MACR100C43 PO; +MIRE1IUD IU; +ONDA4TAB6 PO; +PERC5TAB12 PO
--- NOTE | 2019-05-05 03:47 | REP ---
Clinical: Left renal hemorrhagic lipoma. Comparison: 04/21/2019. Findings: A large mixed density mass extends cranially from the lower pole of the left kidney which contains bulk fat, soft tissue density, and mixed fluid suggesting as per the given history of relatively acute hemorrhage involving a renal angiomyolipoma. The entire lesion on current examination measures approximately 9.1 x 7.9 cm maximal diameter and 14 cm in craniocaudal length and is considerably decreased in size when compared to prior exam. Surgical clips at the lower pole of the left kidney suggest prior intervention. The residual left kidney demonstrates normal symmetric parenchymal enhancement and there is no evidence for associated hydronephrosis. Liver, spleen, pancreas, gallbladder, bilateral adrenal glands and right kidney appear normal. The enteric system is without obstruction or acute inflammatory process. Pelvis demonstrates collapsed normal bladder and age-appropriate uterus/adnexa with IUD in satisfactory position. No significant ascites. No free air. No adenopathy. Abdominal aorta and vasculature appear normal. Musculoskeletal structures are intact. Lung bases are clear. Impression: 1. Hemorrhagic left renal angiomyolipoma is again noted with considerably decreased hemorrhagic component as compared to prior examination. 2. No new acute abdominopelvic pathology appreciated. Electronically Signed by Greg Raymundo MD 05/05/2019 03:38 A
== END ==
LOC: M RAD 14:59
PROVIDERS: ATTEND Internal Medicine Nephrology
DX: D17.71 Benign lipomatous neoplasm of kidney (principal)

== ENCOUNTER → 2019-05-25 | Outpatient (CLI) | payer BC ==
[~2019-05-25] MED LIST changes: -GASTROGRAFIN SOLUTION 30ML (Q9963) As Ordered ONE; -ISOVUE-370 76% 100ML VIAL (Q9967) As Ordered ONE
[2019-05-25 10:11] LABS: HEMATOCRIT 45.2 % (36.0-47.0); HEMOGLOBIN 14.2 g/dl (12.0-15.5); MEAN CORPUSCULAR HEMOGLOBIN 26.8 pg (27.0-33.0); MEAN CORPUSCULAR HGB CONC 31.4 g/dl (32.0-36.5); MEAN CORPUSCULAR VOLUME 85.4 fl (80.0-96.0); PLATELET COUNT, AUTOMATED 168 10^3/uL (150-450); RED BLOOD COUNT 5.29 10^6/uL (4.00-5.40); WHITE BLOOD COUNT 6.9 10^3/uL (4.0-10.0)
[2019-05-25 10:38] LABS: FERRITIN 226 NG/ML (8-252); IRON (FE) 120 UG/DL (50-170)
== END ==
LOC: M WUC 08:44
PROVIDERS: ATTEND Physician Assistant
DX: D17.71 Benign lipomatous neoplasm of kidney (principal)

== ENCOUNTER → 2019-06-14 | Outpatient (POV) | payer BC, SELFPAY ==
--- NOTE | 2019-06-15 09:46 | IRPN ---
[facility] IR Progress Note IR Progress Note DATE: Jun 14, 2019 FOLLOW-UP: Status post left AML embolization for acute hemorrhage. Patient states she is much better. Pain has since resolved. No hematuria. no back pain. no Fatigue. . ON EXAMINATION: none IMPRESSION: Doing well status post AML embolization for acute bleed. Patient will need CT follow up in 3 months to check for tumor shrinkage. Repeat embolization and or ablation may be required to if there is inadequate shrinkage. Patient is also following up with urology in July to explore surgical options. I will see the patient end of July with new CT imaging. Thank you for this referral [facility] urology Allergies Coded Allergies: Sulfa (Sulfonamide Antibiotics) (Verified Allergy, Unknown, 04/21/19) GABRIELA PALOMO MD Jun 15, 2019 09:46
== END ==
LOC: M IRPOV 11:20
PROVIDERS: ATTEND Radiology Diagnostic Radiology
DX: R58 Hemorrhage, not elsewhere classified (principal)

== ENCOUNTER → 2019-08-02 | Outpatient (CLI) | payer OTHER ==
[2019-08-02 17:37] LABS: BLOOD UREA NITROGEN 12 MG/DL (7-18); CARBON DIOXIDE LEVEL 27 MEQ/L (21-32); CHLORIDE LEVEL 107 MEQ/L (98-107); CREATININE FOR GFR 0.79 MG/DL (0.55-1.30); GLOMERULAR FILTRATION RATE > 60.0 (>60); GLUCOSE, FASTING 91 MG/DL (70-100); POTASSIUM SERUM 4.6 MEQ/L (3.5-5.1); SODIUM LEVEL 140 MEQ/L (136-145)
== END ==
LOC: M WUC 12:01
PROVIDERS: ATTEND Nurse Practitioner Women's Health
DX: D30.02 Benign neoplasm of left kidney (principal)

== ENCOUNTER → 2019-08-05 | Outpatient (CLI) | payer OTHER ==
[~2019-08-05] MED LIST changes: +ISOVUE-370 76% 100ML VIAL As Ordered ONE
--- NOTE | 2019-08-05 16:23 | REP ---
REASON FOR EXAM: Followup. COMPARISON: Multiple, the latest 05/04/2019, which showed a resolving left renal hemorrhagic angiomyolipoma. CONTRAST TODAY: 100 mL Isovue-370. There is no change in appearance of the lung bases. Precontrast enhanced portion of the examination again shows absence of choleliths or nephroliths. There is a radiodensity in the left kidney, consistent with a coil and/or clip. It is unchanged in position compared to the prior exam. Contrast-enhanced portion of the examination shows no significant change in appearance of the liver, gallbladder, spleen, pancreas, adrenal glands, or right kidney. Note is again made of a tiny hyperenhancing focus in the anterior segment of the right lobe of the liver, consistent with a small vascular anomaly measuring approximately 7 mm. The mixed density mass arising from the inferior pole of the left kidney is much smaller today measuring approximately 6.2 x 4.8 x 4.5 cm and its density is much less compared to the prior exam. The concomitant small fluid collection seen supramedially to the predominantly fatty mass has also gotten markedly smaller, previously measuring 9.1 cm in its greatest dimension and today measuring 4.2 cm in that same dimension. The abdominal aorta and para-aortic regions are again seen to be within normal limits. No free fluid or free air is seen in the abdomen or pelvis. The bowel loops and their mesenteries are again seen to be within normal limits. Once again, there is a T-shaped radiodensity in the uterus, consistent with an IUD. No intra-abdominal or intrapelvic adenopathy has developed. The osseous structures are stable and intact. IMPRESSION: Significant improvement, as described above. Electronically Signed by Estrada Dickinson DO 08/05/2019 05:13 P
== END ==
LOC: M RAD 13:37
PROVIDERS: ATTEND Nurse Practitioner Women's Health
DX: D30.02 Benign neoplasm of left kidney (principal)
CPT/HCPCS: 74178; Q9967

== ENCOUNTER → 2019-08-23 | Outpatient (POV) | payer OTHER ==
[~2019-08-23] MED LIST changes: -ISOVUE-370 76% 100ML VIAL As Ordered ONE
--- NOTE | 2019-08-25 10:24 | IRPN ---
[facility] IR Progress Note IR Progress Note DATE: Aug 23, 2019 Patient agreed to this telephone consultation. Duration of call was 15 minutes. FOLLOW-UP: 4 months status post embolization for left renal angiomyolipoma for retroperitoneal hemorrhage. Patient doing well since that time. Imaging: I personally reviewed the CT abdomen with contrast performed 08/05/2019 and compared it to the CT abdomen with contrast from 05/04/2019. Marked shrinkage of left renal angiomyolipoma which currently measures 4.7 x 5.6 cm and previously measured 7.7 x 7.6 cm. Interval resolution of left retroperitoneal hematoma. IMPRESSION: Doing well status post left renal AML embolization for hemorrhage. The tumor has shrunk however still remains greater than 4 cm. As long as an AML is greater than 4 cm, there is a higher chance of bleeding. The current options are, to follow this up with further imaging in 3 months time and/or treat by embolization, percutaneous ablation or nephron sparing surgery. Given patient's young age and otherwise healthy kidney, I would suggest further embolization and/or ablation if deemed appropriate. Thank you for this referral CC Dr. Moyer Allergies Coded Allergies: Sulfa (Sulfonamide Antibiotics) (Verified Allergy, Unknown, 04/21/19) GABRIELA PALOMO MD Aug 25, 2019 10:24
== END ==
LOC: M IRPOV 08:20
PROVIDERS: ATTEND Radiology Diagnostic Radiology
DX: D30.02 Benign neoplasm of left kidney (principal)

== ENCOUNTER → 2020-01-25 | Outpatient (CLI) | payer OTHER ==
[~2020-01-25] MED LIST changes: +ISOVUE-370 76% 100ML VIAL As Ordered ONE
--- NOTE | 2020-01-26 04:52 | REP ---
INDICATION: ANGIOMYOLIPOMA OF LT KIDNEY. COMPARISON: 08/05/2019 TECHNIQUE: Axial precontrast and contrast-enhanced images from the lung bases to the pubic symphysis using 100 cc Isovue 370 intravenous contrast material. Arterial phase and delayed phased images of the abdomen obtained along with coronal and sagittal reformations. This CT examination was performed using the following dose reduction techniques: Automated exposure control, adjustment of mA and/or kv according to the patient's size, and the use of iterative reconstruction technique. FINDINGS: Benign-appearing angiomyolipoma extending from the inferior pole of the left kidney is again identified and measures approximately 5.2 x 3.6 x 4.3 cm. Surgical clips and postsurgical scarring along the inferior pole of the left kidney is also identified and appears stable. The right kidney appears normal. The bilateral collecting system is unremarkable and there is no hydroureteronephrosis. No perinephric stranding identified. Liver, spleen, pancreas, gallbladder, bilateral adrenal glands are normal. The enteric system including stomach, small, and large bowel appears normal. No evidence for obstruction or acute inflammatory process. Normal terminal ileum and appendix are identified in the right lower quadrant. Pelvis demonstrates normal bladder and age-appropriate uterus/adnexa with IUD in satisfactory position. No ascites. No free air. No intraperitoneal or retroperitoneal adenopathy. Abdominal aorta and vasculature appear normal. Musculoskeletal structures are intact and without acute osseous abnormality. IMPRESSION: 1. Left renal angiomyolipoma essentially unchanged. No evidence for malignant transformation. No adenopathy. Remainder of the urinary tract system is unremarkable. 2. Otherwise normal CT of the abdomen and pelvis. <Electronically signed by Greg Raymundo > 01/26/20 [id number]
== END ==
LOC: M RAD 14:22
PROVIDERS: ATTEND Nurse Practitioner Women's Health
DX: D30.02 Benign neoplasm of left kidney (principal)
CPT/HCPCS: 74178; Q9967

== ENCOUNTER → 2020-02-02 | Outpatient (CLI) | payer OTHER ==
[~2020-02-02] MED LIST changes: -ISOVUE-370 76% 100ML VIAL As Ordered ONE
[2020-02-02 16:11] LABS: BASO % 0.6 % (0.0-1.0); EOS % 0.6 % (0.0-3.0); HEMATOCRIT 46.4 % (36.0-47.0); LYMPH # 1.6 10^3/uL (1.5-5.0); LYMPH % 30.7 % (24.0-44.0); MEAN CORPUSCULAR HEMOGLOBIN 25.7 pg (27.0-33.0); MEAN CORPUSCULAR HGB CONC 30.2 g/dl (32.0-36.5); MEAN CORPUSCULAR VOLUME 85.3 fl (80.0-96.0); MONO # 0.4 10^3/uL (0.0-0.8); MONO % 7.8 % (0.0-5.0); NEUTROPHILS # 3.1 10^3/uL (1.5-8.5); NEUTROPHILS % 60.1 % (36.0-66.0); PLATELET COUNT, AUTOMATED 216 10^3/uL (150-450); RED BLOOD COUNT 5.44 10^6/uL (4.00-5.40); WHITE BLOOD COUNT 5.2 10^3/uL (4.0-10.0)
[2020-02-02 16:20] LABS: APPEARANCE, URINE HAZY (CLEAR); BACTERIA, URINE AUTO 1+ (NEGATIVE); BILIRUBIN, URINE AUTO NEGATIVE (NEGATIVE); BLOOD, URINE BLOOD NEGATIVE (NEGATIVE); COLOR, URINE YELLOW (YELLOW); GLUCOSE, URINE (UA) AUTO NEGATIVE (NEGATIVE); KETONE, URINE AUTO NEGATIVE (NEGATIVE); LEUKOCYTE ESTERASE, URINE AUTO NEGATIVE (NEGATIVE); MUCUS, URINE SMALL (NEGATIVE); NITRITE, URINE AUTO NEGATIVE (NEGATIVE); PROTEIN, URINE AUTO NEGATIVE (NEGATIVE); RBC, URINE AUTO 3 /HPF (0-3); SPECIFIC GRAVITY URINE AUTO 1.005 (1.002-1.035); SQUAMOUS EPITHELIAL CELL UR AU 6 /HPF (0-6); UROBILINOGEN, URINE AUTO 0.2 mg/dL (0.0-2.0); WBC, URINE AUTO 1 /HPF (0-3)
[2020-02-02 16:48] LABS: ALBUMIN 4.3 GM/DL (3.2-5.2); ALT/SGPT 24 U/L (12-78); BILIRUBIN,TOTAL 0.5 MG/DL (0.2-1.0); BLOOD UREA NITROGEN 9 MG/DL (7-18); CALCIUM LEVEL 9.1 MG/DL (8.5-10.1); CARBON DIOXIDE LEVEL 28 MEQ/L (21-32); CHLORIDE LEVEL 109 MEQ/L (98-107); CREATININE FOR GFR 0.69 MG/DL (0.55-1.30); FERRITIN 96 NG/ML (8-252); GLOMERULAR FILTRATION RATE > 60.0 (>60); GLUCOSE, FASTING 92 MG/DL (70-100); IRON (FE) 137 UG/DL (50-170); PERCENT SATURATION 51.7 % (13.2-45.0); POTASSIUM SERUM 4.7 MEQ/L (3.5-5.1); SODIUM LEVEL 142 MEQ/L (136-145); TOTAL IRON BINDING CAPACITY 265 UG/DL (250-450); TOTAL PROTEIN 7.3 GM/DL (6.4-8.2)
== END ==
LOC: M WUC 11:02
PROVIDERS: ATTEND Physician Assistant
DX: D17.71 Benign lipomatous neoplasm of kidney (principal)

== ENCOUNTER → 2020-04-04 | Outpatient (REF) | payer OTHER, MEDICAID | LOC: M SFHCWAGY 11:41 | PROVIDERS: ATTEND Advanced Practice Midwife | DX: Z12.4 Encounter for screening for malignant neoplasm of cervix (principal) ==

== ENCOUNTER → 2020-04-07 | Outpatient (CLI) | payer OTHER, MEDICAID | LOC: M LABSMTC 09:26 | PROVIDERS: ATTEND Anesthesiology | DX: Z01.812 Encounter for preprocedural laboratory examination (principal); Z20.822 Contact with and (suspected) exposure to COVID-19 ==

== ENCOUNTER → 2020-04-10 | Outpatient (CLI) | payer OTHER ==
--- NOTE | 2020-04-10 09:32 | REP ---
INDICATION: Z01.818 PRE OP COMPARISON: None. TECHNIQUE: PA and lateral. FINDINGS: The mediastinum and cardiac silhouette are normal. The lung denise are clear and without acute consolidation, effusion, or pneumothorax. The skeletal structures are intact and normal. IMPRESSION: No acute cardiopulmonary process. <Electronically signed by Greg Raymundo > 04/10/20 [id number]
[2020-04-10 10:45] LABS: APPEARANCE, URINE HAZY (CLEAR); BACTERIA, URINE AUTO 1+ (NEGATIVE); BILIRUBIN, URINE AUTO NEGATIVE (NEGATIVE); BLOOD, URINE BLOOD NEGATIVE (NEGATIVE); COLOR, URINE YELLOW (YELLOW); GLUCOSE, URINE (UA) AUTO NEGATIVE (NEGATIVE); KETONE, URINE AUTO NEGATIVE (NEGATIVE); LEUKOCYTE ESTERASE, URINE AUTO NEGATIVE (NEGATIVE); NITRITE, URINE AUTO NEGATIVE (NEGATIVE); PROTEIN, URINE AUTO NEGATIVE (NEGATIVE); RBC, URINE AUTO 2 /HPF (0-3); SPECIFIC GRAVITY URINE AUTO 1.013 (1.002-1.035); SQUAMOUS EPITHELIAL CELL UR AU 1 /HPF (0-6); UROBILINOGEN, URINE AUTO 0.2 mg/dL (0.0-2.0); WBC, URINE AUTO 0 /HPF (0-3)
[2020-04-10 10:46] LABS: ALBUMIN 4.2 GM/DL (3.2-5.2); ALT/SGPT 24 U/L (12-78); BILIRUBIN,TOTAL 0.4 MG/DL (0.2-1.0); BLOOD UREA NITROGEN 11 MG/DL (7-18); CALCIUM LEVEL 8.9 MG/DL (8.5-10.1); CARBON DIOXIDE LEVEL 30 MEQ/L (21-32); CHLORIDE LEVEL 107 MEQ/L (98-107); GLOMERULAR FILTRATION RATE > 60.0 (>60); GLUCOSE, FASTING 92 MG/DL (70-100); POTASSIUM SERUM 4.2 MEQ/L (3.5-5.1); SODIUM LEVEL 141 MEQ/L (136-145)
[2020-04-10 10:47] LABS: BASO % 0.8 % (0.0-1.0); EOS # 0.1 10^3/uL (0.0-0.5); EOS % 1.2 % (0.0-3.0); HEMATOCRIT 43.9 % (36.0-47.0); HEMOGLOBIN 13.7 g/dl (12.0-15.5); LYMPH # 1.8 10^3/uL (1.5-5.0); LYMPH % 35.6 % (24.0-44.0); MEAN CORPUSCULAR HEMOGLOBIN 26.2 pg (27.0-33.0); MEAN CORPUSCULAR HGB CONC 31.2 g/dl (32.0-36.5); MEAN CORPUSCULAR VOLUME 83.9 fl (80.0-96.0); MONO # 0.4 10^3/uL (0.0-0.8); MONO % 7.6 % (2.0-8.0); NEUTROPHILS # 2.8 10^3/uL (1.5-8.5); NEUTROPHILS % 54.6 % (36.0-66.0); PLATELET COUNT, AUTOMATED 203 10^3/uL (150-450); RED BLOOD COUNT 5.23 10^6/uL (4.00-5.40)
[2020-04-10 10:56] LABS: INR 0.99; PROTHROMBIN TIME 13.3 SECONDS (12.5-14.3)
[2020-04-10 10:57] LABS: PARTIAL THROMBOPLASTIN TIME 34.6 SECONDS (24.2-38.5)
== END ==
LOC: M WUC 08:45
PROVIDERS: ATTEND Physician Assistant
DX: Z01.818 Encounter for other preprocedural examination (principal)

== ENCOUNTER 2020-04-12 11:03 | Inpatient (IN) | payer OTHER ==
[~2020-04-12] VITALS: Ht 170.2 cm; Wt 74.8 kg
[~2020-04-12 11:03] MED LIST changes: +ACETAMINOPHEN 1000MG 100ML IV BTL (OFIRMEV) (J0131 PER 10MG) As Ordered ONE; +LIDOCAINE 1% MDV 20ML VIAL SQ PRN; +LIDOCAINE 2% 100MG/5ML SDV (FOR ANES.) As Ordered ONE; +LR 1,000 ML IV ONE; +MIDAZOLAM INJ 2MG/2ML VIAL (J2250 PER 1MG) As Ordered ONE; +ONDANSETRON 4MG/2ML VIAL As Ordered ONE; +PHENYLephrine 500MCG 5ML (100MCG/ML) SYRINGE As Ordered ONE; +ROCURONIUM BROMIDE 50 MG/5 ML VIAL As Ordered ONE; +SUGAMMADEX SODIUM 500 MG/5 ML VIAL (BRIDION) As Ordered ONE; +ceFAZolin SOD 2 GM in IV 1 EA IV ONE; +dexameTHASONE 4 MG/ML 1ML VIAL (J1100 PER 1MG) As Ordered ONE; +ePHEDrine SULFATE 25 MG/5 ML(5MG/ML) SYRINGE As Ordered ONE; +fentaNYL 250 MCG/5 ML INJECTION (J3010) As Ordered ONE; +propofoL 200 MG/20 ML VIAL As Ordered ONE
[2020-04-12] MEDS ORDERED: LIDOCAINE 1% SDV 30ML VIAL As Ordered ONE (14:07)
[2020-04-12] MEDS ORDERED: BUPIVACAINE HCL 0.25% 30ML VIAL As Ordered ONE (14:07)
[2020-04-12] MEDS ORDERED: ROCURONIUM BROMIDE 50 MG/5 ML VIAL As Ordered ONE (14:47)
[2020-04-12] MEDS ORDERED: MANNITOL 25% 12.5 GM/50 ML VIAL (J2150) As Ordered ONE ×2 (15:11→15:15)
[2020-04-12] MEDS ORDERED: ESMOLOL INJ 100MG/10ML VIAL As Ordered ONE (16:53)
[2020-04-12] MEDS ORDERED: NS 1,000 ML IV SCH (18:12)
[2020-04-12] MEDS ORDERED: ACETAMINOPHEN TAB 650MG DOSE (2X325MG) PO PRN (18:15)
[2020-04-12] MEDS ORDERED: PERCOCET 5MG/325MG TAB PO PRN ×2 (18:15)
[2020-04-12] MEDS ORDERED: MORPHINE 2 MG/ML 1ML VIAL (J2270) IV PRN (18:15)
[2020-04-12] MEDS ORDERED: MEPERIDINE INJ 25 MG/ML VIAL (J2175) As Ordered ONE (18:18)
[2020-04-12] MEDS ORDERED: fentaNYL 100 MCG/2 ML INJECTION (J3010) As Ordered ONE (18:18)
[2020-04-12] MEDS: fentaNYL 100 MCG/2 ML INJECTION (J3010) IV PRN ×2 (18:29→18:43)
[2020-04-12 18:36] LABS: HEMATOCRIT 42.3 % (36.0-47.0); HEMOGLOBIN 13.2 g/dl (12.0-15.5); MEAN CORPUSCULAR HEMOGLOBIN 25.7 pg (27.0-33.0); MEAN CORPUSCULAR HGB CONC 31.2 g/dl (32.0-36.5); MEAN CORPUSCULAR VOLUME 82.5 fl (80.0-96.0); PLATELET COUNT, AUTOMATED 182 10^3/uL (150-450); RED BLOOD COUNT 5.13 10^6/uL (4.00-5.40); WHITE BLOOD COUNT 9.5 10^3/uL (4.0-10.0)
[2020-04-12] MEDS ORDERED: ONDANSETRON 4MG/2ML VIAL As Ordered ONE (18:36)
--- NOTE | 2020-04-12 18:36 | ROOPDOC ---
[facility] Report Of Operation Report of Operation DATE OF PROCEDURE: 04/12/20 PREPROCEDURE DIAGNOSIS: Left renal angiomyolipoma. POSTPROCEDURE DIAGNOSIS: Left renal angiomyolipoma. PROCEDURE: Left robotic-assisted laparoscopic renal exploration. SURGEON: Rebecca Salinas MD PACKING MACHINE INSPECTOR: Sarah Singh NP ANESTHESIA: General OPERATIVE INDICATIONS: This is a 34 year old female who was found to have a bleeding 14cm left renal angiomyolipoma approximately 1 year ago. She underwent embolization of it in interventional radiology with resolution of the bleeding. Subsequent CT scans over this past year have demonstrated resolution of her perinephric hematoma and a gradually decrease in size of the lesion. It most recently measured approximately 5.5 cm. Due to persistent concern that the mass would bleed again, she requested a partial nephrectomy for removal of the mass. She was brought to the operating room today for this procedure. DESCRIPTION OF PROCEDURE: The patient was brought to the operating room where general anesthesia was induced. Prophylactic antibiotics were infused. A Monet catheter was inserted into the bladder under sterile conditions and the balloon was filled with sterile water. She was then placed in the right lateral decubitus position. All pressure points were appropriately padded and an axillary roll was placed. We then secured the patient to the table with tape. Her abdomen was then prepped and draped in the usual sterile fashion. Next, an 8mm incision was made in line with the 11th rib along the lateral border of the rectus. Pneumoperitoneum was achieved with a Veress needle. Next, an 8mm port was placed for the camera. At this point, the left robotic port was placed off the costal margin. Two right hand robotic ports were then placed with one between the anterior superior iliac spine and the hip and the other one just caudal to the camera port. Last the 12 mm speech therapy assistant port was placed inferior and medial to the camera port. The robot was then docked. The spleen was then dissected off of Gerota's fascia. Next the left colon was dissected off of Gerota's fascia. The large angiomyolipoma was readily seen on the lateral and inferior portions of the kidney. At this point I started dissecting medial to the kidney and of note the bowel mesentery was very adhesed to the mass and the kidney. I carefully dissected the mesentery medially and while doing so several small vessels started bleeding. These were cauterized. Because of the difficulty in doing this, I was not able to get the mesentery down to a position where I could dissect the hilum. I then tried to dissect the mass on all sides and doing this was very difficult as there were no good tissue planes. There was a significant amount of edema incasing the kidney and the mass. I spent approximately 2 hours trying to find a safe plan to dissect the hilum and the mass but was not able to safely do so. Given concern that I might accidentally damage the ureter or cause significant bleeding, the decision was made to abort the procedure at this point. After checking for hemostasis, the robot was undocked. A Ricky fascial closure device was then used to place #0-vicryl free ties through the fascia of the 12mm port site. These ties were then tied down. The abdomen was observed again and there was no bleeding from the left kidney or the hilum. We then removed all the ports under direct vision and there was no bleeding from any of the port sites. At this point, all the incisions were thoroughly irrigated. We then closed the skin of each site using a running #4-0 subcuticular Monocryl stitch. Local anesthetic was then applied to each incision and Dermabond was then applied and this marked the conclusion of the procedure. The patient was then taken out of the left lateral decubitus position, awakened from anesthesia and transported to the recovery room in stable condition. ESTIMATED BLOOD LOSS: 15 mL INTRAOPERATIVE COMPLICATIONS: None SPECIMENS: None PLAN: The patient will be admitted to the hospital postoperatively and she will be discharged home tomorrow. Once she is discharged we will continue to follow her mass with serial imaging with the hope that it will continue to decrease in size. REBECCA SALINAS MD Apr 12, 2020 18:35
[2020-04-12] MEDS ORDERED: METOCLOPRAMIDE INJ 10MG/2ML VIAL (J2765 PER 1) As Ordered ONE (18:37)
[2020-04-12 18:45] LABS: BLOOD UREA NITROGEN 11 MG/DL (7-18); CALCIUM LEVEL 8.7 MG/DL (8.5-10.1); CARBON DIOXIDE LEVEL 25 MEQ/L (21-32); CHLORIDE LEVEL 106 MEQ/L (98-107); CREATININE FOR GFR 0.74 MG/DL (0.55-1.30); GLOMERULAR FILTRATION RATE > 60.0 (>60); GLUCOSE, FASTING 133 MG/DL (70-100); POTASSIUM SERUM 3.7 MEQ/L (3.5-5.1); SODIUM LEVEL 139 MEQ/L (136-145)
[2020-04-12] MEDS ORDERED: MEPERIDINE INJ 25 MG/ML VIAL (J2175) IV PRN (18:45)
[2020-04-12] MEDS ORDERED: ONDANSETRON 4MG/2ML VIAL IV PRN (18:45)
[2020-04-12] MEDS ORDERED: LR 1,000 ML IV SCH (18:45)
[2020-04-12] MEDS ORDERED: METOCLOPRAMIDE INJ 10MG/2ML VIAL (J2765 PER 1) IV PRN (18:45)
[2020-04-12] MEDS: PERCOCET 5MG/325MG TAB PO PRN ×2 (18:58→19:26)
[2020-04-12 19:40] VITALS: BP 120/78
[2020-04-12 20:10] VITALS: BP 117/75
[2020-04-12 20:40] VITALS: BP 113/73
[2020-04-12] MEDS: DOCUSATE SODIUM 100MG CAPSULE PO SCH (20:53)
[2020-04-12 21:40] VITALS: BP 109/70
[2020-04-12 22:40] VITALS: BP 104/68
[2020-04-12 23:40] VITALS: BP 105/66
[2020-04-12] MEDS: ceFAZolin SOD 1 GM in D5W MINI-BAG PLUS 50 ML IV SCH (23:43)
[2020-04-13 00:40] VITALS: BP 106/66
[2020-04-13 02:00] VITALS: BP 106/68
[2020-04-13] MEDS ORDERED: ONDANSETRON 4MG/2ML VIAL IV PRN (05:45)
[2020-04-13 06:00] VITALS: BP 102/72
[2020-04-13 06:34] LABS: HEMATOCRIT 40.1 % (36.0-47.0); HEMOGLOBIN 12.7 g/dl (12.0-15.5); MEAN CORPUSCULAR HEMOGLOBIN 26.1 pg (27.0-33.0); MEAN CORPUSCULAR HGB CONC 31.7 g/dl (32.0-36.5); MEAN CORPUSCULAR VOLUME 82.5 fl (80.0-96.0); PLATELET COUNT, AUTOMATED 171 10^3/uL (150-450); RED BLOOD COUNT 4.86 10^6/uL (4.00-5.40)
[2020-04-13] MEDS: ceFAZolin SOD 1 GM in D5W MINI-BAG PLUS 50 ML IV SCH (06:41)
[2020-04-13 06:54] LABS: BLOOD UREA NITROGEN 8 MG/DL (7-18); CALCIUM LEVEL 7.9 MG/DL (8.5-10.1); CARBON DIOXIDE LEVEL 26 MEQ/L (21-32); CHLORIDE LEVEL 105 MEQ/L (98-107); CREATININE FOR GFR 0.59 MG/DL (0.55-1.30); GLOMERULAR FILTRATION RATE > 60.0 (>60); GLUCOSE, FASTING 97 MG/DL (70-100); SODIUM LEVEL 140 MEQ/L (136-145)
--- NOTE | 2020-04-13 09:41 | IPNPDOC ---
Subjective Review oF Systems Chief Complaint The patient is a 34-year-old female admitted with a reason for visit of Renal Mass. Events since Last Encounter No acute events o/n. Good pain control. Had some nausea w/ ambulation this morning, but no emesis. No f/c/ns. Objective Physical Examination General Exam: Alert, Cooperative, No Acute Distress ABDOMEN EXAM: Soft, Tenderness (mild), Other (incisions clean/dry/intact) Skin Exam: Nl turgor and temperature Neuro Exam: Normal Speech Psych Exam: Mental status NL, Mood NL Other physical findings catheter draining clear yellow urine Vital Signs/I&O Vital Signs Date Time Temp Pulse Resp B/P (MAP) Pulse Ox O2 Delivery O2 Flow Rate FiO2 04/13/20 06:00 98.3 93 18 102/72 (82) 97 Nasal Cannula 2.0 I&O- Last 24 Hours up to 6 AM 04/13/20 06:00 Intake Total 3670 ml Output Total 1400 ml Balance 2270 ml Laboratory Data Labs 24H Laboratory Tests 2 04/12/20 18:14: Nucleated Red Blood Cells % (auto) 0.0, Anion Gap 8, Glomerular Filtration Rate > 60.0, Calcium Level 8.7 04/13/20 05:42: Nucleated Red Blood Cells % (auto) 0.0 04/13/20 05:43: Anion Gap 9, Glomerular Filtration Rate > 60.0, Calcium Level 7.9L CBC/BMP Laboratory Tests 04/12/20 18:14 04/13/20 05:42 04/13/20 05:43 Assessment/Plan Date Seen The patient was seen on 04/13/20. Patient Summary This is a 34 y/o F POD1 s/p L robotic renal exploration. Partial nephrectomy was not performed due to severely inflamed and edematous tissue surrounding the kidney making safe dissection very challenging. This was discussed w/ the patient this morning. Labs are stable w/i normal limits. Good UOP. Plan/VTE VTE Prophylaxis Ordered?: Yes VTE Exclusion Mechanical Proph: N/A:VTE Prophy Ordered Plan/Urinary Catheter Urinary Catheter: D/C Monet Plan - d/c IVF - d/c Monet - percocet prn pain - ambulate - SCDs when in bed - strict I/Os - incentive spirometry - advance diet as tolerated REBECCA SALINAS MD Apr 13, 2020 09:41
[2020-04-13] MEDS: DOCUSATE SODIUM 100MG CAPSULE PO SCH (09:46)
[2020-04-13 10:00] VITALS: BP 117/82
[2020-04-13 14:00] VITALS: BP 119/77
[2020-04-13] MEDS ORDERED: DOK1CAP7 PO (14:26)
[2020-04-13] MEDS ORDERED: PERCOCET PO (14:26)
--- NOTE | 2020-04-13 17:52 | DSES ---
DISCHARGE SUMMARY DATE OF ADMISSION: 04/12/2020 DATE OF DISCHARGE: 04/13/2020 ADMISSION DIAGNOSIS: Left renal angiomyolipoma. DISCHARGE DIAGNOSIS: Left renal angiomyolipoma. ADMITTING PHYSICIAN: Dr. Nayan Moyer DISCHARGING PHYSICIAN: Dr. Nayan Moyer PROCEDURE PERFORMED: A left robotic-assisted laparoscopic renal exploration on 04/12/2020. HISTORY OF PRESENT ILLNESS: This is a 34-year-old female with an approximately 5 cm left renal angiomyolipoma, which had previously bled and been embolized. She requested to have the lesion removed so that she would no longer have to worry about it bleeding again. She was brought to the operating room for that procedure. HOSPITALIZATION COURSE: The patient was admitted to the hospital after undergoing the above-listed procedure. Of note, we were not able to perform a partial nephrectomy as planned due to a significant amount of tissue edema around her left kidney. On postoperative day #1, the patient's catheter was removed, and she voided without difficulty. She started ambulating on postoperative day #1 and did so without difficulty. Her diet was advanced to a regular diet, and she was able to tolerate that without nausea or vomiting. Her pain was well controlled on oral pain medications on postoperative day #1. Since she was doing well, she was deemed ready for discharge. She was discharged home with the plan for her to followup in the urology clinic in approximately 2 weeks for a postoperative visit. We will continue to follow the size of her angiomyolipoma with serial CT scans. ZEB
== END 2020-04-13 16:11 | disposition home or self-care (01) | DRG 254 ==
LOC: M OR 11:03 → M MSPAV 19:38
PROVIDERS: ADMIT Urology; ATTEND Urology
PROC: 8E0W4CZ Robotic Assisted Procedure of Trunk Region, Percutaneous Endoscopic Approach (ICD-10-PCS; 2020-04-12)
PROC: 0TJ54ZZ Inspection of Kidney, Percutaneous Endoscopic Approach (ICD-10-PCS; principal; 2020-04-12 13:00)
DX: D17.71 Benign lipomatous neoplasm of kidney (principal); Z88.2 Allergy status to sulfonamides; Z53.09 Procedure and treatment not carried out because of other contraindication

== ENCOUNTER → 2020-10-04 | Outpatient (CLI) | payer OTHER ==
[~2020-10-04] MED LIST changes: -ACETAMINOPHEN 1000MG 100ML IV BTL (OFIRMEV) (J0131 PER 10MG) As Ordered ONE; +DOK1CAP4 PO; -LIDOCAINE 1% MDV 20ML VIAL SQ PRN; -LIDOCAINE 2% 100MG/5ML SDV (FOR ANES.) As Ordered ONE; -LR 1,000 ML IV ONE; -MIDAZOLAM INJ 2MG/2ML VIAL (J2250 PER 1MG) As Ordered ONE; -ONDANSETRON 4MG/2ML VIAL As Ordered ONE; +PERCOCET PO; -PHENYLephrine 500MCG 5ML (100MCG/ML) SYRINGE As Ordered ONE; -ROCURONIUM BROMIDE 50 MG/5 ML VIAL As Ordered ONE; -SUGAMMADEX SODIUM 500 MG/5 ML VIAL (BRIDION) As Ordered ONE; -ceFAZolin SOD 2 GM in IV 1 EA IV ONE; -dexameTHASONE 4 MG/ML 1ML VIAL (J1100 PER 1MG) As Ordered ONE; -ePHEDrine SULFATE 25 MG/5 ML(5MG/ML) SYRINGE As Ordered ONE; -fentaNYL 250 MCG/5 ML INJECTION (J3010) As Ordered ONE; -propofoL 200 MG/20 ML VIAL As Ordered ONE
[2020-10-04 11:20] LABS: BASO % 0.5 % (0.0-1.0); EOS # 0.1 10^3/uL (0.0-0.5); EOS % 0.8 % (0.0-3.0); HEMATOCRIT 45.8 % (36.0-47.0); HEMOGLOBIN 14.4 g/dl (12.0-15.5); LYMPH # 1.5 10^3/uL (1.5-5.0); LYMPH % 20.2 % (24.0-44.0); MEAN CORPUSCULAR HEMOGLOBIN 26.8 pg (27.0-33.0); MEAN CORPUSCULAR HGB CONC 31.4 g/dl (32.0-36.5); MEAN CORPUSCULAR VOLUME 85.1 fl (80.0-96.0); MONO # 0.5 10^3/uL (0.0-0.8); MONO % 6.1 % (2.0-8.0); NEUTROPHILS # 5.4 10^3/uL (1.5-8.5); NEUTROPHILS % 72.1 % (36.0-66.0); PLATELET COUNT, AUTOMATED 218 10^3/uL (150-450); RED BLOOD COUNT 5.38 10^6/uL (4.00-5.40); WHITE BLOOD COUNT 7.5 10^3/uL (4.0-10.0)
[2020-10-04 11:46] LABS: BLOOD UREA NITROGEN 12 MG/DL (7-18); CALCIUM LEVEL 8.7 MG/DL (8.5-10.1); CARBON DIOXIDE LEVEL 28 MEQ/L (21-32); CHLORIDE LEVEL 109 MEQ/L (98-107); CREATININE FOR GFR 0.66 MG/DL (0.55-1.30); GLOMERULAR FILTRATION RATE > 60.0 (>60); GLUCOSE, FASTING 83 MG/DL (70-100); POTASSIUM SERUM 4.6 MEQ/L (3.5-5.1); SODIUM LEVEL 139 MEQ/L (136-145)
[2020-10-04 11:47] LABS: ALBUMIN 4.2 GM/DL (3.2-5.2); ALT/SGPT 20 U/L (12-78); BILIRUBIN,TOTAL 0.5 MG/DL (0.2-1.0); MAGNESIUM LEVEL 2.4 MG/DL (1.8-2.4); TOTAL PROTEIN 7.1 GM/DL (6.4-8.2)
[2020-10-04 12:03] LABS: ERYTHROCYTE SEDIMENTATION RATE 2 mm/hr (0-20)
[2020-10-04 12:04] LABS: TOTAL 25(OH) VITAMIN D 38.8 NG/ML (30.0-100.0); VITAMIN B12 LEVEL 367 PG/ML
[2020-10-04 12:06] LABS: FOLATE 12.5 NG/ML
[2020-10-05 20:08] LABS: ANA (HEP2) Negative (.)
== END ==
LOC: M WUC 08:33
PROVIDERS: ATTEND Physician Assistant
DX: G25.2 Other specified forms of tremor (principal)

== ENCOUNTER → 2020-10-18 | Outpatient (CLI) | payer OTHER ==
--- NOTE | 2020-10-18 20:15 | REPVR ---
PROCEDURE INFORMATION: Exam: MR Head Without Contrast Exam date and time: 10/18/2020 7:16 PM Age: 35 years old Clinical indication: Other: Chronic tremor fm h/o parkinson TECHNIQUE: Imaging protocol: MR of the head without contrast. COMPARISON: No relevant prior studies available. FINDINGS: Brain: No acute infarct identified on the diffusion-weighted imaging. No parenchymal hemorrhage. No evidence of brain parenchymal edema or intracranial mass effect. No significant white matter disease. Normal basal ganglia and brainstem. No abnormal mineral deposition identified in the substantia nigra on the GRE sequence. Cerebral ventricles: Normal. No ventriculomegaly. Bones/joints: Unremarkable. Paranasal sinuses: Retention cyst or polyp in the right maxillary sinus. Trace left maxillary sinus mucosal thickening. Mastoid air cells: Trace right mastoid fluid. Orbital cavity: Unremarkable. Soft tissues: Unremarkable. IMPRESSION: Unremarkable MRI brain. Electronically signed by: Tana Oneil On 10/18/2020 20:15:20 PM
--- NOTE | 2020-10-18 20:24 | REPVR ---
PROCEDURE INFORMATION: Exam: MR Cervical Spine Without Contrast Exam date and time: 10/18/2020 7:16 PM Age: 35 years old Clinical indication: Other: Chronic tremor fm h/o parkinson TECHNIQUE: Imaging protocol: Multiplanar magnetic resonance images of the cervical spine without contrast. COMPARISON: CR CHEST 2 VIEW 04/10/2020 9:06 AM FINDINGS: Vertebrae: Trace 2 mm of degenerative retrolisthesis of C6 on C7. No acute fracture seen. Mild, chronic height loss of the C6 vertebral body. Spinal cord: Normal signal. No cord compression. There is disc desiccation from C2-C3 through C6-C7. Disc height loss and spondylosis is mild at C6-C7, minimal at C4-C5 and C5-C6. C2-C3: No significant disc disease. No significant spinal stenosis. C3-C4: Subtle central disc protrusion does not contribute to central spinal canal stenosis. The neural foramina are patent. C4-C5: Mild disc osteophyte complex does not contribute to central spinal canal stenosis. Uncovertebral and facet arthropathy causing [id number] right and mild left neural foraminal stenoses. C5-C6: Disc osteophyte complex causes mild central spinal canal stenosis. Uncovertebral and facet arthropathy causing [id number] bilateral neural foraminal stenoses. C6-C7: Slight retrolisthesis. Left eccentric diffuse disc osteophyte complex and posterior ligamentum flavum buckling. Central spinal canal stenosis is mild. Uncovertebral and facet arthropathy causing moderate to severe left and mild right neural foraminal stenoses. C7-T1: No significant disc disease. No significant spinal stenosis. Soft tissues: Unremarkable. Vertebral arteries: Expected flow voids in the vertebral arteries. IMPRESSION: 1. Jmfv-[id number] right and mild left neural foraminal stenoses at C4-C5. 2. Mild central spinal canal stenosis at C5-C6. Vtqd-[id number]-[id number] bilateral neural foraminal stenoses. 3. Mild central spinal canal stenosis at C6-C7. Moderate to severe left and mild right neural foraminal stenoses. 4. No evidence of cervical cord compression or myelopathy. Electronically signed by: Tana Oneil On 10/18/2020 20:23:43 PM
== END ==
LOC: M RAD 17:47
PROVIDERS: ATTEND Physician Assistant
DX: G25.2 Other specified forms of tremor (principal)

== ENCOUNTER → 2020-11-13 | Outpatient (CLI) | payer OTHER ==
[~2020-11-13] MED LIST changes: +ISOVUE-370 76% 100ML VIAL As Ordered ONE
--- NOTE | 2020-11-13 11:51 | REP ---
INDICATION: ANGIOMYOLIPOMA LT KIDNEY. COMPARISON: 01/25/2020 the latest prior also before and after contrast TECHNIQUE: Standard helical technique before and after the administration of 100 cc Isovue 370 intravenously. FINDINGS: The lung bases are clear and unchanged. The pre contrast enhanced portion examination again shows a predominant adipose density tumor seen arising from the inferior pole of the left kidney projecting anteriorly. Hepatic and splenic densities are within normal limits. There is no cholelithiasis. There are no right-sided nephroliths. There is a surgical clip in the left kidney status quo. The contrast-enhanced portion of the examination shows the liver, gallbladder, spleen, pancreas, adrenal glands, and kidneys to be unchanged. The predominantly adipose density tumor arising from the left kidney is unchanged. The abdominal aorta and para-aortic regions are unchanged. No adenopathy has developed. There are a few borderline para-aortic lymph node status quo. There is no significant change in appearance of the bowel loops or the mesenteries. There is no evidence of free fluid or free air. Bone window technique throughout the examination shows no significant change in appearance of the osseous structures. IMPRESSION: Stable CT findings as described above. The left renal angiomyolipoma is stable. <Electronically signed by Estrada Dickinson > 11/13/20 [id number]
== END ==
LOC: M RAD 09:45
PROVIDERS: ATTEND Urology
DX: D30.02 Benign neoplasm of left kidney (principal)
CPT/HCPCS: 74170; Q9967

== ENCOUNTER → 2021-01-16 | Outpatient (CLI) | payer OTHER, MEDICAID ==
[~2021-01-16] MED LIST changes: -ISOVUE-370 76% 100ML VIAL As Ordered ONE
[2021-01-16 13:30] LABS: THYROID STIMULATING HORMONE 2.07 uIU/ML (0.358-3.740); THYROXINE (T4) 9.1 UG/DL (4.5-12.0)
== END ==
LOC: M WUC 10:12
PROVIDERS: ATTEND Psychiatry & Neurology Neurology
DX: E07.9 Disorder of thyroid, unspecified (principal)

== ENCOUNTER → 2021-11-28 | Outpatient (CLI) | payer OTHER | LOC: M RAD 16:23 | PROVIDERS: ATTEND Urology | DX: D30.02 Benign neoplasm of left kidney (principal) ==

== ENCOUNTER → 2024-09-16 | Outpatient (CLI) | payer OTHER ==
[~2024-09-16] MED LIST changes: +ONDA-282 PO; -ONDA4TAB6 PO
== END ==
LOC: M PLAIMG 12:00
PROVIDERS: ATTEND Family Medicine
DX: M53.3 Sacrococcygeal disorders, not elsewhere classified (principal); M46.1 Sacroiliitis, not elsewhere classified

== ENCOUNTER → 2024-12-02 | Outpatient (CLI) | payer OTHER | LOC: M WHC 08:40 | PROVIDERS: ATTEND Family Medicine | DX: Z12.31 Encounter for screening mammogram for malignant neoplasm of breast (principal); R92.333 Mammographic heterogeneous density, bilateral breasts; R92.8 Other abnormal and inconclusive findings on diagnostic imaging of breast ==

== ENCOUNTER → 2024-12-21 | Outpatient (CLI) | payer OTHER | LOC: M WHC 09:04 | PROVIDERS: ATTEND Family Medicine | DX: R92.8 Other abnormal and inconclusive findings on diagnostic imaging of breast (principal); N60.01 Solitary cyst of right breast; N60.12 Diffuse cystic mastopathy of left breast | CPT/HCPCS: 76641; 76642; 77066; G0279 ==

== ENCOUNTER → 2024-12-21 | Outpatient (CLI) | payer OTHER ==
[2024-12-21 13:20] LABS: BASO # 0.0 10^3/uL (0.0-0.2); BASO % 0.7 % (0.0-1.0); EOS # 0.1 10^3/uL (0.0-0.5); EOS % 1.9 % (0.0-3.0); LYMPH # 1.8 10^3/uL (1.5-5.0); LYMPH % 30.4 % (24.0-44.0); MONO # 0.5 10^3/uL (0.0-0.8); MONO % 7.9 % (2.0-8.0); NEUTROPHILS # 3.4 10^3/uL (1.5-8.5); NEUTROPHILS % 58.9 % (36.0-66.0); PLATELET COUNT, AUTOMATED 226 10^3/uL (150-450)
[2024-12-21 13:53] LABS: ALT/SGPT 20 U/L (7.0-40); AST/SGOT 17 U/L (<34); CALCIUM LEVEL 9.1 MG/DL (8.5-10.1); CARBON DIOXIDE LEVEL 28 MMOL/L (20-31); CHLORIDE LEVEL 106 MMOL/L (98-107); CHOLESTEROL LEVEL 159 MG/DL (<200); CHOLESTEROL RISK RATIO 3.62 (<5); CREATININE FOR GFR 0.74 MG/DL (0.55-1.30); FREE T4 1.23 NG/DL (0.89-1.76); GLOMERULAR FILTRATION RATE > 90.0 (>58); LDL CHOLESTEROL 102.9 MG/DL (<100); NON-HDL-C 115.1 MG/DL; POTASSIUM SERUM 4.2 MMOL/L (3.5-5.1); SODIUM LEVEL 142 MMOL/L (136-145); TOTAL 25(OH) VITAMIN D 31.0 NG/ML (20.0-100.0); TRIGLYCERIDES LEVEL 61 MG/DL (<150); VITAMIN B12 LEVEL 322 PG/ML (211-911)
== END ==
LOC: M WUC 08:16
PROVIDERS: ATTEND Family Medicine
DX: E55.9 Vitamin D deficiency, unspecified (principal); D51.9 Vitamin B12 deficiency anemia, unspecified; Z13.29 Encounter for screening for other suspected endocrine disorder; Z13.220 Encounter for screening for lipoid disorders